=== PATIENT | male | born 1970 | race Caucasian/White ===

== ENCOUNTER 2021-05-26 16:33 | Inpatient (IN) | payer MEDICAID, SELFPAY ==
[2021-05-26] VITALS (29 sets, daily range): BP systolic 109–138; BP diastolic 59–91; PULSE 100–120; RESP 12–22; TEMP 37.1–37.2; O2SAT 94–100; BMI 24.6
--- NOTE | ~2021-05-26 | CT_ITS ---
EXAMINATION: CT abdomen pelvis w con EXAM DATE: 05/26/2021 17:26 INDICATION: Low abdominal pain. TECHNIQUE: Spiral CT of the abdomen and pelvis was performed following intravenous injection of 100 m L Omnipaque 350. Axial, coronal and sagittal images of the abdomen and pelvis were reviewed. The do se-length product (DLP) for this examination was 407.94 mGy-cm. The exposure was tailored according to patient size (auto mA exposure control), and iterative reconstruction (ASIR) was used as additiona l dose reduction technique. There is no prior study for comparison. FINDINGS: The liver, spleen, adrenal glands and pancreas are unremarkable. Gallbladder is unremarkab le. No biliary obstruction. Portal and splenic veins are patent. Kidneys enhance symmetrically. T here is no hydronephrosis. The prostate is unremarkable. Mild pericystic inflammation and diffuse bladder wall thickening, acute or chronic cystitis. There is no retroperitoneal or pelvic lymphadeno zoe. Mild to moderate arteriosclerotic disease. There is mild sigmoid diverticulosis. There is moderate amount of perisigmoid inflammation with sever al small foci of extraluminal gas in the mesentery, probably diverticulitis with microperforation. Po cket of mesenteric fluid without well-defined enhancing wall, region measuring 3.3 x 1.3 cm. Can't ex clude that this will turn into a small organized abscess. There is moderate amount of ileal wall thickening as well, ileitis. The small bowel proximal to the s egment is moderately distended with air and fluid, probably ileus. Appendix has fluid, but is otherwi se unremarkable. Colon also has fluid, correlate for diarrhea. The stomach and small bowel are unrem arkable. The heart is normal in size. There are no pericardial or pleural effusions. The lung base s are unremarkable. There are no osteoblastic or osteolytic lesions identified. IMPRESSION: 1. Acute sigmoid diverticulitis with microperforation. Colonic fluid, diarrhea. 2. Several loops of ileal wall inflammation, with moderately distended small bowel proximal to this. Consider gastroenteritis, reactive ileus. 3. Mild bladder wall inflammation, acute or chronic cystitis. 4. Recommend antibiotics, consider follow-up KUB/CT as indicated clinically. Reviewed, dictated and finalized at location G. IMPRESSION: 1. Acute sigmoid diverticulitis with microperforation. Colonic fluid, diarrhea . 2. Several loops of ileal wall inflammation, with moderately distended small b owel proximal to this. Consider gastroenteritis, reactive ileus. 3. Mild bladder wall inflammation, acute or chronic cystitis. 4. Recommend antibiotics, consider follow-up KUB/CT as indicated clinically.
[2021-05-26 17:03] LABS: Basophils Percent Auto 0.3 % (0.2-1.2); Eosinophils Percent Auto 0.1 % (0-4.4); Hematocrit 49.6 % (42.0-52.0); Hemoglobin 15.8 g/dL (14.0-18.0); Immature Granulocyte Absolute 0.08 K/mm3 (0.00-0.031); Immature Granulocyte Percent A 0.6 % (0-0.5); Lymphocytes Absolute Auto 0.76 K/mm3 (0.9-3.2); Lymphocytes Percent Auto 5.7 % (18.3-44.2); Mean Corpuscular HGB Conc 31.9 g/dl (32-36); Mean Corpuscular Hemoglobin 30.2 pg (26-34); Mean Corpuscular Volume 94.7 fl (80-100); Mean Platelet Volume 9.2 fl (7.4-10.4); Monocytes Absolute Auto 0.5 K/mm3 (0.1-0.6); Monocytes Percent Auto 3.6 % (2.6-8.5); Neutrophils Absolute Auto 11.9 K/mm3 (1.3-6.7); Neutrophils Percent Auto 89.7 % (45.5-73.1); Platelet Count Result 161 k/mm3 (150-375); Red Blood Count 5.24 M/mm3 (4.6-6.20); Red Cell Distribution Width 13.1 % (11.5-14.5); White Blood Count 13.2 K/mm3 (4.5-10.0)
[2021-05-26 17:09] LABS: Alanine Aminotransferase 19 U/L (4-50); Albumin Level 5.1 g/dL (3.5-5.1); Alkaline Phosphatase 56 U/L (38-126); Anion Gap 13 mmol/L (8-16); Aspartate Amino Transferase 27 U/L (17-59); Bilirubin,Total 2.5 mg/dL (0.2-1.3); Blood Urea Nitrogen 15 mg/dL (9-20); Calcium 9.9 mg/dL (8.4-10.2); Carbon Dioxide 23 mmol/L (22-30); Chloride 100 mmol/L (98-107); Estimated CRCL calculation 65 ml/min; Estimated Glomerular Filt Rate 54; Glucose 148 mg/dL (75-110); Lipase 36 U/L (23-300); Potassium 4.3 mmol/L (3.4-5.0); Sodium 136 mmol/L (137-145)
[2021-05-26] MEDS: SODIUM CHLORIDE 0.9% IV 1,000 ML 999 ML IV CONT (17:28)
[2021-05-26] MEDS: MORPHINE SULFATE (*CRX) 2 MG/ML INJ IV PUSH (17:29)
--- NOTE | 2021-05-26 17:39 | ED.ABDPAIN ---
HPI - Abdominal Pain General Chief Complaint: Abdominal Pain Stated Complaint: abd pain Time Seen by Provider: 05/26/21 16:44 Source: patient History of Present Illness HPI narrative: Patient is a 50 y/o male complaining bilateral lower abdominal pain since 4 days ago. He describes his pain as sharp and rates it as 7/10. He states that moving around aggravates his pain and laying still helps. There is no pain radiation. He also has some difficulty with urinating and watery stool. Related Data Allergies Allergy/AdvReac Type Severity Reaction Status Date / Time No Known Allergies Allergy Verified 06/12/18 10:32 Review of Systems Constitutional: Constitutional: Denies chills, Denies fever(s), Denies headache(s) and Denies weakness Eyes: Eyes: Denies blurry vision ENT: Denies headache(s) and Denies neck pain Cardiovascular: Cardiovascular: Denies chest pain and Denies dyspnea Respiratory: Respiratory: Denies cough and Denies dyspnea Gastrointestinal: Gastrointestinal: Reports abdominal pain, Reports diarrhea, Denies nausea and Denies vomiting Genitourinary: Genitourinary: Denies hematuria and Denies dysuria Musculoskeletal: Musculoskeletal: Denies back pain and Denies neck pain Neurologic: Denies headache(s) and Denies weakness Exam Const: General: no acute distress and well developed Orientation/consciousness: oriented to person, oriented to place, oriented to time and patient oriented x3 HENMT: Head: normocephalic Ears: external ears normal General nose exam: Normal external nose present Eyes: General: appearance normal, both eyes and all related structures Conjunctivae: conjunctivae normal Neck: Neck: normal visual inspection and full ROM Chest: Chest palpation & inspection: normal inspection of the chest and no tenderness Resp: Effort & Inspection: normal respiratory effort Auscultation: clear to auscultation bilaterally Cardio: Rate: tachycardic Rhythm: regular rhythm GI: GI Palp: Yes abdominal tenderness (bilateral lower abdomen) and Yes Soft to palpation Skin: General skin exam: normal color and turgor normal Neuro: General: oriented to person, oriented to place, oriented to time and patient oriented x3 Cognition (Neuro): normal cognition Extrem: General: normal to inspection, full ROM and no pedal edema Psych: Appearance: grossly normal Mental Status: mental status grossly normal Affect: normal affect Course Consultations Consultation #1: Discussed with Dr. Campbell, who agrees to admit and also recommends surgery consult. Date: 05/26/21 Time: 19:44 Consultation #2: Discussed with Dr. Kruger, who agrees to consult. Date: 05/26/21 Vital Signs Vital signs: Vital Signs Pulse Rate 115 H 05/26/21 16:49 Respiratory Rate 18 05/26/21 16:49 Blood Pressure 125/83 05/26/21 16:49 Temperature 37.2 C 05/26/21 20:19 Pulse Rate 112 H 05/26/21 20:19 Respiratory Rate 20 05/26/21 20:19 Blood Pressure 126/80 05/26/21 20:19 Pulse Oximetry 100 05/26/21 20:19 MDM - Abdominal Pain Lab Data Result diagrams: 05/26/21 16:52 05/26/21 16:52 Labs: Lab Results 05/26/21 05/26/21 05/26/21 Range/Units 16:52 16:52 18:21 WBC 13.2 H (4.5-10.0) K/mm3 RBC 5.24 (4.6-6.20) M/mm3 Hgb 15.8 (14.0-18.0) g/dL Hct 49.6 (42.0-52.0) % MCV 94.7 (80-100) fl MCH 30.2 (26-34) pg MCHC 31.9 L (32-36) g/dl RDW 13.1 (11.5-14.5) % Plt Count 161 (150-375) k/mm3 MPV 9.2 (7.4-10.4) fl Immature Gran % (Auto) 0.6 H (0-0.5) % Neut % (Auto) 89.7 H (45.5-73.1) % Lymph % (Auto) 5.7 L (18.3-44.2) % Swain % (Auto) 3.6 (2.6-8.5) % Eos % (Auto) 0.1 (0-4.4) % Baso % (Auto) 0.3 (0.2-1.2) % Lymph # (Auto) 0.76 L (0.9-3.2) K/mm3 Swain # (Auto) 0.5 (0.1-0.6) K/mm3 Eos # (Auto) 0.0 (0-0.3) K/mm3 Baso # (Auto) 0.0 (0.0-0.1) K/mm3 Abs Immat Gran (auto) 0.08 H (0.00-0.031) K/mm3 Abs
[2021-05-26 18:33] LABS: Add Urine Microscopic? YES; Appearance Urine Clear (Clear); Bilirubin Urine Negative (Negative); Blood Urine Negative (Negative); Color Urine Yellow (Yellow); Glucose Urine UA Negative (Negative); Ketones Urine Trace mg/dL (Negative); Leukocyte Esterase Ur Negative LEU/UL (Negative); Mucus Urine Heavy /lpf; Nitrate Urine Negative (Negative); Protein Urine 2+ mg/dL (Negative); Squamous Epithelial Cell Urine Rare /hpf (Few); Urobilinogen Urine Negative mg/dL (<2.0)
[2021-05-26] MEDS: metroNIDAZOLE 500 MG/ISO 100ML 500 MG/100 ML BAG 100 MG IVPB (19:01)
--- NOTE | 2021-05-26 19:51 | PM.IMHP ---
H&P: HPI History of Present Illness Date/Time: 05/26/21 19:51 Chief Complaint: abdominal pain Narrative: Patient is a 50 y/o male complaining abdominal pain since Thursday. Abdominal pain is located in the lower abdomen. He felt he was constipated on Thursday and was not able to go. He describes the pain as sharp and 7 x 10 in intensity, aggravated with moving around, alleviated by lying still. No radiation of the pain. He denies any urinary symptoms. Since Thursday he has been having watery stool. No blood in the stool. There is no nausea or vomiting. He came in for the evaluation the ED use onto her my EKG I have creatinine 1.4 leukocytosis with WBC count of 13.2 CT scan of the abdomen and pelvis was done which showed acute sigmoid diverticulitis with microperforations along with several loops of ideal wall inflammation with moderate distended small bowel proximal to this. There is also mild lateral wall inflammation and acute diastolic cystitis His admitted for further evaluation and management Review of Systems Review of Systems: Narrative: - CONSTITUTIONAL: Denies weight loss, fever and chills. - HEENT: Denies changes in vision and hearing - RESPIRATORY: Denies SOB and cough. - CV: Denies palpitations and CP. - GI: reportsabdominal pain, and diarrhea, denies nausea, vomiting - : Denies dysuria and urinary frequency. - MSK: Denies myalgia and joint pain. - SKIN: Denies rash and pruritus. - NEUROLOGICAL: Denies headache and syncope. - PSYCHIATRIC: Denies recent changes in mood. Denies anxiety and depression. All systems reviewed & are unremarkable except as noted in HPI and below Neurologic: Reports weakness Endocrine: Endocrine: Reports fatigue [facility] Social History Social History Smoking packs per day: 1 Smoking cigarettes per day: 20.0 Smoking status: Former smoker Alcohol intake: never Substance use: never Gender identity (if verbalized by the patient): Male Spiritual care concerns: No Meds Home Medications and Allergies Home Medications Medication Instructions Recorded Confirmed Type No Home Medications 05/26/21 05/26/21 History Allergies Allergy/AdvReac Type Severity Reaction Status Date / Time No Known Allergies Allergy Verified 06/12/18 10:32 Vital Signs Vital Signs - 24 hr 05/26/21 16:49 05/26/21 16:50 05/26/21 16:56 Temperature 98.9 F Pulse Rate 115 H 120 H 115 H Respiratory Rate 18 18 20 Blood Pressure 125/83 125/83 Pulse Oximetry 96 98 05/26/21 17:00 05/26/21 17:01 05/26/21 17:15 Temperature Pulse Rate 108 H 118 H 111 H Respiratory Rate 15 21 H 14 Blood Pressure 119/83 131/91 H Pulse Oximetry 94 95 96 05/26/21 17:27 05/26/21 17:28 05/26/21 17:30 Temperature Pulse Rate 108 H 110 H 108 H Respiratory Rate 15 20 13 Blood Pressure 137/82 133/82 Pulse Oximetry 95 96 97 05/26/21 17:31 05/26/21 17:45 05/26/21 17:46 Temperature Pulse Rate 111 H 105 H 111 H Respiratory Rate 12 15 20 Blood Pressure 138/85 Pulse Oximetry 96 96 96 05/26/21 18:00 05/26/21 18:01 05/26/21 18:15 Temperature Pulse Rate 102 H 104 H 116 H Respiratory Rate 16 20 17 Blood Pressure 136/87 Pulse Oximetry 96 97 97 05/26/21 18:22 05/26/21 18:30 05/26/21 18:31 Temperature Pulse Rate 105 H 103 H 102 H Respiratory Rate 19 19 22 H Blood Pressure 137/87 135/82 Pulse Oximetry 97 96 96 05/26/21 18:45 05/26/21 18:46 05/26/21 19:00 Temperature Pulse Rate 100 102 H 103 H Respiratory Rate 20 15 17 Blood Pressure 131/81 137/83 Pulse Oximetry 98 97 96 05/26/21 19:01 Temperature Pulse Rate 110 H Respiratory Rate 13 Blood Pressure Pulse Oximetry 96 Exam Narrative: Exam Narrative: GENERAL: The patient is well developed, not in acute distress HEENT: Nonicteric sclerae, PERRLA, EOMI. Oropharynx clear. Moist mucous membranes. Conjunctivae appear well perfused. C
[2021-05-26] MEDS: CIPROFLOXACIN 400 MG/D5W 200ML 200 ML 200 MG IVPB (20:09)
[2021-05-26] MEDS: SODIUM CHLORIDE 0.9% IV 1,000 ML 125 ML IV CONT (20:29)
--- NOTE | 2021-05-26 20:41 | PC.NURSE ---
This patient, Giovani Diaz, was admitted to Medical Room 349-01. Patient/family oriented to hospital policies and general routines including ID bracelet, bed and alarms, visiting hours, pain management, procedures, bathroom and other care routines, personal items, smoking policy, room service/diet, and visiting hours. Information on how to activate the Rapid Response Team has been discussed. Patient/Family are encouraged to report perceived risks to care and to ask questions if they do not understand what they are told or what they should do.
[2021-05-27 04:23] VITALS: BP 117/68; PULSE 101; RESP 18; TEMP 36.9; O2SAT 96
[2021-05-27] MEDS: SODIUM CHLORIDE 0.9% IV 1,000 ML 125 ML IV CONT ×2 (05:23→16:03)
[2021-05-27] MEDS: metroNIDAZOLE 500 MG/ISO 100ML 500 MG/100 ML BAG 100 MG IVPB ×3 (05:23→22:02)
[2021-05-27 05:33] LABS: Basophils Percent Auto 0.3 % (0.2-1.2); Eosinophils Percent Auto 0.1 % (0-4.4); Hemoglobin 13.9 g/dL (14.0-18.0); Immature Granulocyte Absolute 0.06 K/mm3 (0.00-0.031); Immature Granulocyte Percent A 0.5 % (0-0.5); Immature Platelet Fraction Pct 2.4 % (0.9-11.2); Lymphocytes Absolute Auto 0.77 K/mm3 (0.9-3.2); Lymphocytes Percent Auto 6.7 % (18.3-44.2); Mean Corpuscular HGB Conc 31.6 g/dl (32-36); Mean Platelet Volume 9.2 fl (7.4-10.4); Monocytes Absolute Auto 0.5 K/mm3 (0.1-0.6); Neutrophils Absolute Auto 10.1 K/mm3 (1.3-6.7); Neutrophils Percent Auto 88.4 % (45.5-73.1); Platelet Count Result 165 k/mm3 (150-375); Red Blood Count 4.63 M/mm3 (4.6-6.20); Red Cell Distribution Width 13.2 % (11.5-14.5); White Blood Count 11.5 K/mm3 (4.5-10.0)
[2021-05-27 05:46] LABS: Anion Gap 12 mmol/L (8-16); Blood Urea Nitrogen 16 mg/dL (9-20); Calcium 9.2 mg/dL (8.4-10.2); Carbon Dioxide 21 mmol/L (22-30); Chloride 101 mmol/L (98-107); Estimated CRCL calculation 67 ml/min; Estimated Glomerular Filt Rate 54; Glucose 142 mg/dL (75-110); Potassium 4.1 mmol/L (3.4-5.0); Sodium 134 mmol/L (137-145)
[2021-05-27] MEDS: ENOXAPARIN 40 MG/0.4 ML SYRINGE SUB-Q (08:58)
[2021-05-27] MEDS: CIPROFLOXACIN 400 MG/D5W 200ML 200 ML 200 MG IVPB (08:59)
--- NOTE | 2021-05-27 09:17 | PM.CNGS ---
Assessment and Plan Assessment and plan (1) Perforation of sigmoid colon due to diverticulitis: Onset Date: ~05/26/21 Code(s): K57.20 - Diverticulitis of large intestine with perforation and abscess without bleeding Status: Acute Assessment and Plan: It appears that the micro perforation is into the mesentery. Patient may have a pericolonic developing abscess 3 x 3 x 1 cm in size. Probably will be too small to drain. Probably will need a repeat CT scan at some point after trying a course of antibiotics. (2) Ileus: Onset Date: ~05/26/21 Code(s): K56.7 - Ileus, unspecified Status: Acute Assessment and Plan: This appears to have resolved as the patient is not nauseated and having loose stools. (3) Acute kidney injury: Onset Date: ~05/2021 Code(s): N17.9 - Acute kidney failure, unspecified Status: Acute Assessment and Plan: Slight elevation of BUN creatinine and patient may be somewhat dehydrated. Will see if this improves with hydration. (4) Cystitis: Onset Date: ~05/26/21 Code(s): N30.90 - Cystitis, unspecified without hematuria Status: Acute Assessment and Plan: This is record in view of the findings of the CT scan. Urinalysis is not too remarkable will await urine culture. Patient will be on antibiotics anyway for his diverticulitis using Levaquin and Flagyl which should treat most any urinary tract infection. History of Present Illness Consult details Consult date: 05/27/21 Reason for consult: abdominal pain Requesting physician: Darrell Campbell MD Narrative: Patient is a 50 y/o tall White male who presented to the [facility] emergency room complaining abdominal pain since Thursday. he states that his abdominal pain is located in the lower abdomen. He felt he was constipated on Thursday and was not able to have a BM. He describes the pain as sharp and 7/ 10 in intensity, aggravated with moving around, alleviated by lying still. No radiation of the pain. He denies any urinary symptoms. Since Thursday he has been having watery stools. No blood in the stool. There is no nausea or vomiting. He came in for the evaluation to the ED and was noted to have a leukocytosis with WBC count of 13.2. A CT scan of the abdomen and pelvis was done which showed acute sigmoid diverticulitis with microperforations in the mesentery along with several loops of ideal wall inflammation with moderate distended small bowel proximal to this. There is also mild lateral wall inflammation and signs of a thickened urinary bladder wall consistent with acute cystitis. However his urinalysis does not look too bad. Review of Systems Constitutional: Constitutional: Reports no additional constitutional complaints and Denies frequent falls Eyes: Eyes: Reports as per HPI ENT: Reports Normal hearing present, Denies dizziness and Reports other (Mucous membranes moist.) Cardiovascular: Cardiovascular: Denies chest pain, Denies palpitations, Denies dyspnea and Denies dyspnea on exertion Respiratory: Respiratory: Denies hemoptysis, Denies dyspnea, Denies dyspnea on exertion and Denies wheezing Gastrointestinal: Gastrointestinal: Reports no additional gastrointestinal complaints Genitourinary: Genitourinary: Denies hematuria, Denies nocturia and Denies urinary frequency Musculoskeletal: Musculoskeletal: Denies deformity and Reports other ( no clubbing,cyanosis, or edema) Integumentary/Breasts: Skin/Breast: Denies new lesions, Denies rash and Denies unusual bruising Neurologic: Reports Normal hearing present, Denies dizziness, Denies frequent falls, Denies memory loss and Denies seizure-like activity Psychiatric: Psychiatric: Denies memory loss and Reports other ( normal mood and mental status) Endocrine: Endocrine: Denies cold intolerance and Denies palpitations Hematologic/Lymphatic: Hematologic/Lymphatic: Denies easy bleeding and Denies easy bruis
[2021-05-27 14:00] VITALS: BP 118/71; PULSE 102; RESP 20; TEMP 36.4; O2SAT 98
--- NOTE | 2021-05-27 15:51 | PM.IMPN ---
Progress Note: A&P Assessment and Plan (1) Perforation of sigmoid colon due to diverticulitis: Onset Date: ~05/26/21 Code(s): K57.20 - Diverticulitis of large intestine with perforation and abscess without bleeding Status: Acute Assessment and Plan: CT showed gas and micro perforation that may be into the mesentery. per surgery - may have a pericolonic developing abscess 3 x 3 x 1 cm in size. Probably will be too small to drain. Probably will need a repeat CT scan at some point after trying a course of antibiotics. Continue IV fluids clear liquid diet - and generalized bowel rest continue IV Cipro and IV Flagyl (2) Ileus: Onset Date: ~05/26/21 Code(s): K56.7 - Ileus, unspecified Status: Acute Assessment and Plan: 3 bowel movements yesterday, 5 bowel movements today appears to have resolved patient is not nauseated and having loose stools. appreciate general surgery consultation and recommendations at discharge may need to be treated with daily fiber as patient states he does have a chronic history of constipation (3) Acute kidney injury: Onset Date: ~05/2021 Code(s): N17.9 - Acute kidney failure, unspecified Status: Acute Assessment and Plan: continue IV fluids at 125 mils per hour clear liquid diet creatinine 1.4, rechecking labs in the morning Slight elevation of BUN creatinine and patient may be somewhat dehydrated. Will see if this improves with hydration. (4) Cystitis: Onset Date: ~05/26/21 Code(s): N30.90 - Cystitis, unspecified without hematuria Status: Acute Assessment and Plan: shown in the findings of the CT scan at this admission. Urinalysis is not too remarkable , UA clear,will await urine culture. informed patient - bladder inflammation may be related to diverticulitis episode Patient will be on antibiotics anyway for his diverticulitis using Levaquin and Flagyl which should treat most any urinary tract infection. encourage patient to follow-up with primary care provider (5) Diverticulitis large intestine: Qualifiers: Diverticulitis bleeding: without bleeding Diverticulitis complication: with perforation and abscess Qualified Code(s): K57.20 - Diverticulitis of large intestine with perforation and abscess without bleeding Code(s): K57.32 - Diverticulitis of large intestine without perforation or abscess without bleeding Status: Acute Assessment and Plan: see above plan for perforation of sigmoid colon due to diverticulitis encouraged patient to continue his probiotics at home after discharge treat patient's constipation at discharge with daily fiber patient will need to follow-up with general surgery after discharge for colonoscopy (6) Sepsis: Qualifiers: Sepsis acute organ dysfunction status: unspecified Sepsis type: sepsis due to unspecified organism Qualified Code(s): A41.9 - Sepsis, unspecified organism Code(s): A41.9 - Sepsis, unspecified organism Status: Acute Assessment and Plan: tachycardia admission, slightly improved with IV fluids continue IV hydration IV antibiotics Cipro and Flagyl lactate 2.0 white count improved from 13.2 to 11.5 no fevers noted today no nausea or vomiting today Additional Plan DVT prophylaxis Lovenox Subjective Date/time seen: 05/27/21 15:51 Giovani is feeling better than he did admission. His CT did show a micro perforation with gas. He feels like he had about 3 bowel movements yesterday, and was up to 5 bowel movements when I went to see him at noon today. But he feels improved because he is no longer having abdominal pain except during exam with deep palpation to the left lower and upper quadrants. Dr. Kruger allowed the patient to start clear liquid diet for lunch. But during my exam and noticed he only took in 25-50%. Will continue IV fluids at 125 mL an hour. Contin
[2021-05-27 20:00] VITALS: PULSE 90; RESP 18; O2SAT 95
[2021-05-27 20:04] VITALS: BP 107/59; PULSE 90; RESP 18; TEMP 37.2; O2SAT 95
[2021-05-27] MEDS: CIPROFLOXACIN 400 MG/D5W 200ML 200 ML 150 MG IVPB (20:36)
[2021-05-28] MEDS: SODIUM CHLORIDE 0.9% IV 1,000 ML 125 ML IV CONT ×2 (02:30→13:38)
[2021-05-28 04:11] VITALS: BP 122/78; PULSE 82; RESP 20; TEMP 36.7; O2SAT 94
[2021-05-28] MEDS: metroNIDAZOLE 500 MG/ISO 100ML 500 MG/100 ML BAG 100 MG IVPB ×3 (05:37→21:29)
[2021-05-28 05:43] LABS: Basophils Percent Auto 0.2 % (0.2-1.2); Eosinophils Absolute Auto 0.1 K/mm3 (0-0.3); Eosinophils Percent Auto 1.3 % (0-4.4); Hematocrit 37.6 % (42.0-52.0); Hemoglobin 12.1 g/dL (14.0-18.0); Immature Granulocyte Absolute 0.06 K/mm3 (0.00-0.031); Immature Granulocyte Percent A 0.6 % (0-0.5); Lymphocytes Absolute Auto 0.82 K/mm3 (0.9-3.2); Lymphocytes Percent Auto 7.8 % (18.3-44.2); Mean Corpuscular HGB Conc 32.2 g/dl (32-36); Mean Corpuscular Hemoglobin 30.1 pg (26-34); Mean Corpuscular Volume 93.5 fl (80-100); Mean Platelet Volume 9.3 fl (7.4-10.4); Monocytes Absolute Auto 0.7 K/mm3 (0.1-0.6); Monocytes Percent Auto 6.8 % (2.6-8.5); Neutrophils Absolute Auto 8.8 K/mm3 (1.3-6.7); Neutrophils Percent Auto 83.3 % (45.5-73.1); Platelet Count Result 135 k/mm3 (150-375); Red Blood Count 4.02 M/mm3 (4.6-6.20); White Blood Count 10.6 K/mm3 (4.5-10.0)
[2021-05-28 05:50] LABS: Anion Gap 8 mmol/L (8-16); Blood Urea Nitrogen 14 mg/dL (9-20); Calcium 8.3 mg/dL (8.4-10.2); Carbon Dioxide 23 mmol/L (22-30); Chloride 103 mmol/L (98-107); Estimated CRCL calculation 72 ml/min; Estimated Glomerular Filt Rate 59; Glucose 123 mg/dL (75-110); Magnesium 1.7 mg/dL (1.6-2.3); Sodium 134 mmol/L (137-145)
--- NOTE | 2021-05-28 07:55 | PM.PNGS ---
Progress Note: A&P Assessment and Plan (1) Perforation of sigmoid colon due to diverticulitis: Onset Date: ~05/26/21 Code(s): K57.20 - Diverticulitis of large intestine with perforation and abscess without bleeding Status: Acute Assessment and Plan: Patient still seems to be having somewhat of a ileus. Will continue IV antibiotics stick with clear liquids until he feels ready to try full liquids. He is having multiple loose stool so whenever he feels like he can try a we will advance him to full liquids. (2) Ileus: Onset Date: ~05/26/21 Code(s): K56.7 - Ileus, unspecified Status: Acute Assessment and Plan: as above (3) Acute kidney injury: Onset Date: ~05/2021 Code(s): N17.9 - Acute kidney failure, unspecified Status: Acute Assessment and Plan: improved on today's labs. (4) Cystitis: Onset Date: ~05/26/21 Code(s): N30.90 - Cystitis, unspecified without hematuria Status: Acute Assessment and Plan: This was noted on CT scan. Patient really having no specific symptoms of problems with the bladder that I can tell. Additional Plan Will continue IV antibiotics and IV fluids until patient able to advance his diet. May be able to be discharged tomorrow on oral antibiotics for another 7-10 days if doing well. White count the same today. Subjective Subjective Date/Time Seen: 05/28/21 07:55 Patient reports: tolerating liquids well Interval history: Patient states that overnight after trying liquids he felt slightly bloated and also slightly dizzy. He wants stick with clear liquids this morning. No increased abdominal pain. He was able do some walking early this morning in the hallway. Still had about 3 or 4 loose stools overnight. Review of Systems Constitutional: Constitutional: Reports no additional constitutional complaints ENT: Reports other (Mucous Membranes moist.) Cardiovascular: Cardiovascular: Denies dyspnea Respiratory: Respiratory: Denies pain on inspiration and Denies dyspnea Gastrointestinal: Comments: Patient complains of continuing loose stools and feeling slightly dizzy when up and about after drinking clear liquids yesterday. Genitourinary: Genitourinary: Reports no additional male genitourinary complaints Musculoskeletal: Musculoskeletal: Reports other (No calf swelling or edema) Integumentary/Breasts: Skin/Breast: Reports system reviewed and no additional complaints, except as docu Exam Const: General: cooperative, no acute distress, alert and awake Orientation/consciousness: patient oriented x3 HENMT: Mouth: Yes moist mucous membranes Neck: Neck: normal visual inspection Chest: Chest palpation & inspection: normal inspection of the chest Resp: Effort & Inspection: normal respiratory effort Auscultation: clear to auscultation bilaterally Cardio: Jugular venous distension: no JVD Rate: regular rate Rhythm: regular rhythm GI: GI Palp: Yes abdominal tenderness ( Mild in the left lower quadrant and right lower quadrant), Yes Soft to palpation, No Guarding due to palpation present (GI) and No Rigid due to palpation Auscultation: Hypoactive bowel sounds present Rectal Exam: deferred : Male General Exam: Yes normal external exam Neuro: General: patient oriented x3 and moves all extremities Speech: normal speech Extrem: General: normal exam except as noted Psych: Mental Status: mental status grossly normal Speech and movement: Normal speech and movement present Affect: normal affect Thought content: Yes Normal thought content present Objective Data Vital Signs Vital Signs: Vital Signs - 24 hr 05/27/21 14:00 05/27/21 20:00 05/27/21 20:04 Temperature 36.4 C L 37.2 C Pulse Rate 102 H 90 90 Respiratory Rate 20 18 18 Blood Pressure 118/71 107/59 L Pulse Oximetry 98 95 95 05/28/21 04:11 Temperature 36.7 C Pulse Rate 82 Respiratory Rate 20 Blood Pressure 122/78
[2021-05-28] MEDS: CIPROFLOXACIN 400 MG/D5W 200ML 200 ML 100 MG IVPB (08:24)
[2021-05-28] MEDS: ENOXAPARIN 40 MG/0.4 ML SYRINGE SUB-Q (08:27)
[2021-05-28] MEDS: MAGNESIUM SULF 2 GM/WATER 50ML 2 GM/50 ML BAG IVPB (10:49)
--- NOTE | 2021-05-28 11:49 | PCNSR ---
On 05/28/21, the student,Faith Shirley, provided care and completed [facility] documentation on this patient. I have reviewed the student's documentation and agree with the findings.
[2021-05-28 14:00] VITALS: BP 116/68; PULSE 91; RESP 16; TEMP 36.3; O2SAT 95
[2021-05-28 14:28] VITALS: O2SAT 95
--- NOTE | 2021-05-28 14:53 | PM.IMPN ---
Progress Note: A&P Assessment and Plan (1) Perforation of sigmoid colon due to diverticulitis: Onset Date: ~05/26/21 Code(s): K57.20 - Diverticulitis of large intestine with perforation and abscess without bleeding Status: Acute Assessment and Plan: CT showed acute sigmoid diverticulitis with microperforation in pocket of mesenteric fluid without well-defined enhancing wall, may be early abscess formation (Too small to drain per general surgery) Appreciate general surgery consultation Continue IV Cipro and Flagyl Clear liquid diet. Advance as tolerated. Continue IV fluids until tolerating diet better. Plan for repeat CT scan following antibiotic course to monitor perforation/abscess. Will also need outpatient follow up for colonoscopy. (2) Ileus: Onset Date: ~05/26/21 Code(s): K56.7 - Ileus, unspecified Status: Acute Assessment and Plan: Resolved. Noted on CT with several loops of ileal wall inflammation. He has been having multiple, loose stools and tolerating CLD without N/V. advance diet as tolerated plan as above (3) Acute kidney injury: Onset Date: ~05/2021 Code(s): N17.9 - Acute kidney failure, unspecified Status: Acute Assessment and Plan: Creatinine elevated at 1.4 upon arrival with improvement today down to 1.3. GFR is 59 today. Continue gentle IV fluid rehydration Monitor renal function closely and renally dose medications (4) Sepsis: Qualifiers: Sepsis acute organ dysfunction status: unspecified Sepsis type: sepsis due to unspecified organism Qualified Code(s): A41.9 - Sepsis, unspecified organism Code(s): A41.9 - Sepsis, unspecified organism Status: Acute Assessment and Plan: Present on admission with tachycardia and leukocytosis. He remains afebrile. Leukocytosis and tachycardia improving. Lactic is 2.0. Continue treatment plan as above (5) Abnormal finding on CT scan: Code(s): R93.89 - Abnormal findings on diagnostic imaging of other specified body structures Status: Acute Assessment and Plan: CT showed mild bladder wall inflammation, concerning for cystitis. He denies urinary symptoms and UA without concerns for infection. Additional Plan Mag 1.7 today. Will administer 2 g IV magnesium sulfate. Subjective Date/time seen: 05/28/21 14:53 Interval history: date of service: 05/28/2021 Giovani Diaz is a healthy 50-year-old male no significant past medical history who is seen in follow-up for diverticulitis with microperforation. He is feeling better today and his pain is improved. He still endorses lower abdominal pain in the right and left quadrants that he currently rates as 7/10. He also complains of feeling bloated and this worsens if he eats anything. He has had no appetite at all. He notices his pain is slightly worse when eating, so he did not eat breakfast this morning and has only had a few sips of lunch. He has been having brown, liquidy stools and estimates 5 episodes today. Denies melena or hematochezia. He is able to ambulate to the restroom without difficulty. Denies dizziness or lightheadedness. No shortness breath, cough, or chest pain. No headaches or body aches. No fevers or chills. Review of Systems Review of Systems: All systems reviewed & are unremarkable except as noted in HPI and below Exam Narrative: Exam Narrative: Mr. Diaz is a well-nourished, well-appearing 50-year-old male who is lying supine in bed. He appears comfortable and is in NARD. Neuro: awake, alert and oriented x4, speech clear, no focal neuro deficits noted HEENMT: normocephalic, atraumatic, EOMI, sclerae anicteric, moist oral mucosa Neck: supple, no lymphadenopathy Respiratory: clear to auscultation bilaterally, nonlabored breathing Cardio: regular rate, regular rhythm with S1-S2 Abdomen: slightly distended, normoactive bowel sounds, soft, min
--- NOTE | 2021-05-28 16:26 | PC.NURSE ---
Patient is still wanting to stick to the clear liquid diet. Has not had much of an appetite and feels bloated after eating and has had six loose stools.
[2021-05-28] MEDS: SODIUM CHLORIDE 0.9% IV 1,000 ML 85 ML IV CONT (16:29)
[2021-05-28] MEDS: CIPROFLOXACIN 400 MG/D5W 200ML 200 ML 200 MG IVPB (20:05)
[2021-05-28 20:16] VITALS: O2SAT 98
[2021-05-28 21:26] VITALS: BP 128/82; PULSE 92; RESP 20; TEMP 36.6; O2SAT 98
[2021-05-29] MEDS: SODIUM CHLORIDE 0.9% IV 1,000 ML 85 ML IV CONT (04:25)
[2021-05-29] MEDS: ACETAMINOPHEN 500 MG TABLET 1000 MG PO (04:58)
[2021-05-29] MEDS: metroNIDAZOLE 500 MG/ISO 100ML 500 MG/100 ML BAG 100 MG IVPB ×2 (05:31→13:28)
[2021-05-29 06:00] VITALS: BP 115/68; PULSE 85; RESP 18; TEMP 36.2; O2SAT 97
[2021-05-29 06:22] LABS: Basophils Percent Auto 0.2 % (0.2-1.2); Eosinophils Absolute Auto 0.2 K/mm3 (0-0.3); Eosinophils Percent Auto 1.6 % (0-4.4); Hematocrit 38.4 % (42.0-52.0); Hemoglobin 12.1 g/dL (14.0-18.0); Immature Granulocyte Absolute 0.06 K/mm3 (0.00-0.031); Immature Granulocyte Percent A 0.5 % (0-0.5); Lymphocytes Absolute Auto 0.79 K/mm3 (0.9-3.2); Lymphocytes Percent Auto 6.7 % (18.3-44.2); Mean Corpuscular HGB Conc 31.5 g/dl (32-36); Mean Corpuscular Hemoglobin 29.8 pg (26-34); Mean Corpuscular Volume 94.6 fl (80-100); Mean Platelet Volume 9.3 fl (7.4-10.4); Monocytes Absolute Auto 0.9 K/mm3 (0.1-0.6); Monocytes Percent Auto 7.8 % (2.6-8.5); Neutrophils Absolute Auto 9.9 K/mm3 (1.3-6.7); Neutrophils Percent Auto 83.2 % (45.5-73.1); Platelet Count Result 169 k/mm3 (150-375); Red Blood Count 4.06 M/mm3 (4.6-6.20); Red Cell Distribution Width 13.2 % (11.5-14.5); White Blood Count 11.9 K/mm3 (4.5-10.0)
[2021-05-29 06:41] LABS: Anion Gap 10 mmol/L (8-16); Blood Urea Nitrogen 13 mg/dL (9-20); Calcium 8.6 mg/dL (8.4-10.2); Carbon Dioxide 23 mmol/L (22-30); Chloride 102 mmol/L (98-107); Estimated CRCL calculation 85 ml/min; Estimated Glomerular Filt Rate > 60; Glucose 126 mg/dL (75-110); Potassium 3.6 mmol/L (3.4-5.0); Sodium 135 mmol/L (137-145)
[2021-05-29] MEDS: CIPROFLOXACIN 400 MG/D5W 200ML 200 ML 200 MG IVPB (08:43)
[2021-05-29] MEDS: ENOXAPARIN 40 MG/0.4 ML SYRINGE SUB-Q (08:45)
--- NOTE | 2021-05-29 13:14 | PM.PNGS ---
Progress Note: A&P Assessment and Plan (1) Perforation of sigmoid colon due to diverticulitis: Onset Date: ~05/26/21 Code(s): K57.20 - Diverticulitis of large intestine with perforation and abscess without bleeding Status: Acute Assessment and Plan: Clinically improving. Bowels are moving and his bloating has improved. Able to tolerate full liquids today. Will advance to a low fiber diet. Continue this for 2 weeks. Director Of Provider Relations educated patient. Okay from a surgical standpoint to discharge the patient later today if tolerating a low fiber diet. Would recommend another 8 days of oral antibiotics, ciprofloxacin and metronidazole. We will plan to have him follow-up with Dr. Kruger in 1 week and set him up as an outpatient for a colonoscopy when seen in follow-up. (2) Ileus: Onset Date: ~05/26/21 Code(s): K56.7 - Ileus, unspecified Status: Acute Assessment and Plan: Resolved. (3) Acute kidney injury: Onset Date: ~05/2021 Code(s): N17.9 - Acute kidney failure, unspecified Status: Acute (4) Cystitis: Onset Date: ~05/26/21 Code(s): N30.90 - Cystitis, unspecified without hematuria Status: Acute Additional Plan I have discussed the patient's case and plan of care with Dr. Kruger. Subjective Subjective Date/Time Seen: 05/29/21 11:14 Patient reports: no new complaints, feels better, pain is less, flatus, bowel movement (x 3 today, loose, diarrhea improving) and afebrile Interval history: The patient was seen this morning lying in bed. He reports having full liquids for breakfast and doing well with that. No nausea or vomiting. He denies any abdominal pain this morning, states he is more just tender in the lower abd still. Reports his significant bloating has improved since yesterday. Still moving his bowels with 3 loose BMs this morning. Review of Systems Review of Systems: All systems reviewed & are unremarkable except as noted in HPI and below Exam Const: General: comfortable, no acute distress, alert and awake Orientation/consciousness: patient oriented x3 Resp: Effort & Inspection: normal respiratory effort Auscultation: clear to auscultation bilaterally Cardio: Rate: regular rate Rhythm: regular rhythm GI: Inspection: no visible herniation and other (mildly distended) GI Palp: Yes Soft to palpation, Yes Tenderness to palpation present (GI) (suprapubic), No Guarding due to palpation present (GI), Yes No hepatosplenomegaly present and No Rebound tenderness present Auscultation: normal bowel sounds Rectal Exam: deferred Skin: General skin exam: normal color Neuro: General: moves all extremities and no focal motor deficits Extrem: General: no clubbing, cyanosis or edema and no calf tenderness Psych: Mental Status: mental status grossly normal Insight: Good insight present (Psych) Judgement: Good judgement present (Psych) Objective Data Vital Signs Vital Signs: Vital Signs - 24 hr 05/28/21 14:00 05/28/21 14:28 05/28/21 20:16 Temperature 97.3 F L Pulse Rate 91 Respiratory Rate 16 Blood Pressure 116/68 Pulse Oximetry 95 95 98 05/28/21 21:26 05/29/21 06:00 Temperature 97.8 F 97.2 F L Pulse Rate 92 85 Respiratory Rate 20 18 Blood Pressure 128/82 115/68 Pulse Oximetry 98 97 Intake/Output Intake/Output: Intake & Output 05/26/21 05/27/21 05/28/21 05/29/21 23:59 23:59 23:59 23:59 Intake Total 1300 3410 4090 1640 Output Total 300 0 Balance 1300 3110 4090 1640 Meds/Results Medications: Active Medications Generic Name Dose Route Start Last Admin Trade Name Freq PRN Reason Stop Dose Admin Acetaminophen 1,000 mg 05/27/21 09:26 05/29/21 04:58 Acetaminophen 500 Mg Tablet PO 1,000 mg Q6H PRN Administration Mild Pain (1-3) or Fever Hydrocodone Bitart/Acetaminophen 1 tab 05/27/21 09:26 Hydrocodone/Acetaminophen (*Crx) 5-325 Mg Tablet PO Q6H PRN Pain Rated 4-6 Enoxaparin
[2021-05-29 14:00] VITALS: BP 120/75; PULSE 97; RESP 16; TEMP 36.8; O2SAT 98
--- NOTE | 2021-05-29 15:37 | PM.DS ---
DS: Admitting Diagnosis Admitting Diagnosis Admitting Diagnosis: Diverticulitis with microperforation DS: Discharge Diagnosis Discharge Diagnosis (1) Perforation of sigmoid colon due to diverticulitis: Onset Date: ~05/26/21 Code(s): K57.20 - Diverticulitis of large intestine with perforation and abscess without bleeding Status: Acute Assessment and Plan: CT showed acute sigmoid diverticulitis with microperforation in pocket of mesenteric fluid without well-defined enhancing wall, may be early abscess formation (Too small to drain per general surgery) Seen in consultation by general surgery Treated with IV Cipro and Flagyl. will continue course of p.o. Cipro and Flagyl as an outpatient for 8 days Probiotic prescribed with antibiotics Diet was slowly advanced. Able to tolerate low-fiber diet. Will continue with low-fiber diet as an outpatient until general surgery follow-up Tylenol as needed for pain control Follow-up with general surgery in 1 week. Colonoscopy will be arranged and likely will have repeat CT scan. (2) Ileus: Onset Date: ~05/26/21 Code(s): K56.7 - Ileus, unspecified Status: Acute Assessment and Plan: Resolved. Noted on CT with several loops of ileal wall inflammation. He had multiple, loose stools and was able to tolerate diet without nausea or vomiting (3) Acute kidney injury: Onset Date: ~05/2021 Code(s): N17.9 - Acute kidney failure, unspecified Status: Acute Assessment and Plan: Creatinine elevated at 1.4 upon arrival. suspect prerenal etiology secondary to dehydration, especially given multiple loose stools. he was rehydrated with IV fluids and renal function returned to baseline. (4) Sepsis: Qualifiers: Sepsis acute organ dysfunction status: unspecified Sepsis type: sepsis due to unspecified organism Qualified Code(s): A41.9 - Sepsis, unspecified organism Code(s): A41.9 - Sepsis, unspecified organism Status: Acute Assessment and Plan: Present on admission with tachycardia and leukocytosis. He remained afebrile. Leukocytosis improved and tachycardia resolved. Lactic 2.0. Source of infection felt to be diverticulitis with microperforation. See plan above for treatment. (5) Abnormal finding on CT scan: Code(s): R93.89 - Abnormal findings on diagnostic imaging of other specified body structures Status: Acute Assessment and Plan: CT showed mild bladder wall inflammation, concerning for cystitis. He did not have urinary symptoms and UA without concerns for infection. DS: Summary Hospital Course Hospital Course: date of admission: 05/26/2021 date of discharge: 05/29/2021 Giovani Diaz is a healthy 50-year-old male no significant past medical history who presented to the emergency department on 05/26/2021 with complaints of lower abdominal pain ongoing for 4 days that he described as 7/10 with associated loose stool. Upon presentation to the emergency department, he was tachycardic with additional vital signs stable, WBC was 13.2, H&H and platelets within normal limits, sodium 136 creatinine 1.4, additional electrolytes stable, lipase 36, UA without concerns for infection, and CT abdomen/ pelvis showed acute sigmoid diverticulitis with microperforation with colonic fluid, several loops of ileal wall inflammation, and mild bladder wall inflammation. he was admitted to the hospitalist service for further evaluation and management and seen in consultation by General surgery. Please see above for further details. He was treated with IV antibiotics and had symptomatic improvement. He began feeling better and was able to tolerate a low-fat diet. Given his overall improvement, he was determined to no longer require inpatient care was felt to be stable for discharge. He will follow-up with general surgery in 1 week for further monitoring. We discussed worrisome signs and sym
== END 2021-05-29 16:30 | disposition home or self-care (01) | DRG 720 ==
LOC: ANHED 17:12 → ANH3MED 05-27 07:43
PROVIDERS: Surgery; Admitting Provider Internal Medicine; Emergency Provider Emergency Medicine; Visit Provider Physician Assistant
DX: A41.9 Sepsis, unspecified organism (principal); K57.20 Diverticulitis of large intestine with perforation and abscess without bleeding; N17.9 Acute kidney failure, unspecified; K56.7 Ileus, unspecified; N30.90 Cystitis, unspecified without hematuria
CPT/HCPCS: 36415; 74177; 80048; 80053; 81001; 83605; 83690; 83735; 85025; 85055; 96361; 96365; 96375; 99285; A9270; J0744; J1650; J2270; J3475; J7030; Q9967

== ENCOUNTER 2021-06-01 07:51 | Inpatient (IN) | payer MEDICAID, SELFPAY ==
[2021-06-01] VITALS (31 sets, daily range): BP systolic 113–145; BP diastolic 64–89; PULSE 80–114; RESP 11–22; TEMP 36.2–37.1; O2SAT 92–99; BMI 24.6
--- NOTE | ~2021-06-01 | XR_ITS ---
EXAMINATION: XR chest 1V portable DATE: 06/01/2021 08:40 INDICATION: Abdominal pain. TECHNIQUE: A single frontal view of the chest was obtained. COMPARISON: CT abdomen and pelvis 05/26/2021 FINDINGS: There is mild atelectasis at the lung bases. No pleural effusion or pneumothorax. The heart size is normal. There is free intraperitoneal gas. IMPRESSION: 1. Free intraperitoneal gas, consistent with perforated viscus. 2. Mild atelectasis at the lung bases. Reviewed, dictated and finalized at location A.
--- NOTE | ~2021-06-01 | XR_ITS ---
EXAMINATION: XR abdomen obstructive series DATE: 06/01/2021 08:41 INDICATION: Left lower quadrant abdominal pain. TECHNIQUE: Upright and supine views of the abdomen on 4 radiographs were obtained. COMPARISON: CT abdomen and pelvis 05/26/2021 FINDINGS: There are dilated loops of small bowel. The colon is decompressed. There is free intraperit [place] gas. There is mild atelectasis at the lung bases. IMPRESSION: 1. Free intraperitoneal gas, consistent with perforated viscus. 2. Dilated small bowel, consistent with adynamic ileus versus bowel obstruction. Reviewed, dictated and finalized at location A. IMPRESSION: 1. Free intraperitoneal gas, consistent with perforated viscus. 2. Dilated small bowel, consistent with adynamic ileus versus bowel obstruction .
--- NOTE | ~2021-06-01 | CT_ITS ---
EXAMINATION: CT abdomen pelvis w con DATE: 06/01/2021 09:19 INDICATION: Low abdominal pain. TECHNIQUE: Computed tomography (CT) of the abdomen and pelvis was performed with 100 mL Omnipaque 350 intravenous contrast. Automated exposure control and iterative reconstruction technique were employe d. The dose-length product was 486.70 mGy-cm. COMPARISON: CT abdomen and pelvis 05/26/2021 FINDINGS: The visualized portions of the lung bases demonstrate mild atelectasis. There are small ple ural effusions. The heart size is normal. There are coronary artery calcifications. There is a small pericardial effusion. The liver, gallbladder, spleen, pancreas, adrenal glands, and kidneys are queenie l. There are scattered diverticula in the colon. There is wall thickening of the sigmoid colon and mu ltiple loops of small bowel. The appendix is normal. There is free intraperitoneal gas under the diap hragm. There is a small volume of ascites. There is a rim-enhancing abscess in the midabdomen measuri ng 6.0 x 4.2 x 6.9 cm. In the right anterior abdomen, there is a 3.0 x 2.1 x 3.1 cm rim-enhancing abs cess. There are other smaller abscesses in the peritoneum. There is widespread stranding of the intra -abdominal fat. There are dilated loops of small bowel, consistent with adynamic ileus versus partial obstruction. There is a small sliding hiatal hernia. There are no pathologically enlarged lymph node s. There is mild thoracolumbar spondylosis. IMPRESSION: 1. Perforated sigmoid diverticulitis with free gas under the diaphragm, peritonitis, multiple abscess es, and small volume of ascites. 2. Dilated small bowel, consistent with adynamic ileus versus partial small bowel obstruction. 3. Small pleural effusions. 4. Small pericardial effusion. Reviewed, dictated and finalized at location A. IMPRESSION: 1. Perforated sigmoid diverticulitis with free gas under the diaphragm, periton itis, multiple abscesses, and small volume of ascites. 2. Dilated small bowel, consistent with adynamic ileus versus partial small bow el obstruction. 3. Small pleural effusions. 4. Small pericardial effusion.
--- NOTE | 2021-06-01 08:08 | ECG_ITS ---
Measurements Intervals [place] Rate: 104 P: 15 CO: 98 QRS: 36 QRSD: 105 T: 33 QT: 344 QTc: 454 Interpretive Statements SINUS TACHYCARDIA WITH SHORT CO INTERVAL BASELINE ARTIFACT- I, II, III, AVR, AVL, AVF, V1-V6 BORDERLINE ECG Electronically Signed On 06-01-2021 15:14:10 CDT by Selvin Pedroza D.O.
--- NOTE | 2021-06-01 08:10 | ED.ABDPAIN ---
HPI - Abdominal Pain General Chief Complaint: Abdominal Pain Stated Complaint: ABD PAIN Time Seen by Provider: 06/01/21 08:12 Source: patient and family Mode of arrival: ambulatory Limitations: no limitations History of Present Illness HPI narrative: Patient is a 50-year-old male with a recent history of diverticulitis with microperforations and abscess, discharged home May 29, who returns for recurrence of severe abdominal pain. Pain occurred acutely this morning approximately 1 hour prior to arrival. Sharp, stabbing in nature in the lower abdomen associated with abdominal distention. Patient reports he is having difficulty taking a deep breath secondary to the abdominal pain. No chest pain. States he feels diaphoretic and nauseous. Patient saw Dr. Kruger while in house, improved and did not require any surgical management. Patient denies any urinary symptoms. Patient denies any fever, chills, cough, shortness of breath, rhinorrhea. No recent sick contacts. Related Data Allergies Allergy/AdvReac Type Severity Reaction Status Date / Time No Known Allergies Allergy Verified 06/12/18 10:32 Review of Systems Review of Systems: Narrative: CONSTITUTIONAL: Denies fever, chills, or sweats. EYES: Denies visual changes, redness, or discharge. ENT: Denies rhinorrhea, congestion, sore throat, or otalgia. CARDIOVASCULAR: Denies chest pain, palpitations, or edema. RESPIRATORY: Denies cough or dyspnea. Reports pain with inspiration. GASTROINTESTINAL: Reports abdominal pain, nausea, denies vomiting GENITOURINARY: Denies dysuria or hematuria. SKIN: Denies rash or itching. MUSCULOSKELETAL: Denies back pain, joint pain, or myalgia. NEUROLOGIC: Denies headache, numbness, or weakness. [facility] Past Medical History Medical History (Updated 06/01/21 @ 09:35 by Catarina Oquendo MD) Abnormal finding on CT scan Acute kidney injury (~05/2021) Cystitis (~05/26/21) Diverticulitis large intestine Ileus (~05/26/21) Perforation of sigmoid colon due to diverticulitis (~05/26/21) Sepsis Social History Social History Smoking packs per day: 1 Smoking cigarettes per day: 20.0 Smoking status: Former smoker Alcohol intake: never Substance use: never Gender identity (if verbalized by the patient): Male Spiritual care concerns: No Exam Narrative: Exam Narrative: GENERAL: Awake, alert, pale, diaphoretic HEAD: Normocephalic, atraumatic. EYES: PERRLA and EOMI. ENT: Nares clear, no rhinorrhea or epistaxis. Mucous membranes dry. NECK: Supple. CHEST: No respiratory distress, breathing even and non labored HEART: Borderline tachycardia, sinus rhythm ABDOMEN: Distention present, tender throughout, positive rebound, positive guarding in the bilateral right and left lower quadrant EXTREMITIES: Normal range of motion. No edema. SKIN: Warm, dry, no rash. NEURO:No focal deficits. Alert and oriented x3 Course Vital Signs Vital signs: Vital Signs Temperature 36.7 C 06/01/21 07:56 Pulse Rate 99 06/01/21 07:56 Respiratory Rate 20 06/01/21 07:56 Blood Pressure 121/78 06/01/21 07:56 Pulse Oximetry 99 06/01/21 07:56 Temperature 36.7 C 06/01/21 07:56 Pulse Rate 107 H 06/01/21 08:31 Respiratory Rate 19 06/01/21 08:31 Blood Pressure 127/74 06/01/21 08:30 Pulse Oximetry 94 06/01/21 08:31 MDM - Abdominal Pain MDM Narrative Medical decision making narrative: Patient presented for acute onset of abdominal pain and had an acute abdomen at the time of assessment. At the time of assessment vital signs are stable, patient is borderline tachycardic, no hypotension. Patient was ill-appearing, was given IV fluids, antiemetic and pain medication. Physical exam is notable for distention, rebound, extreme tenderness. Given recent history of diverticulitis I was concerned for perforated viscus, thus a upright chest x-ray and KUB was obtained which does confirm free air
[2021-06-01] MEDS: MORPHINE SULFATE (*CRX) 4 MG/ML INJ IV PUSH (08:14)
[2021-06-01] MEDS: ONDANSETRON INJ 4 MG/2 ML VIAL IV PUSH ×2 (08:14→14:19)
[2021-06-01] MEDS: SODIUM CHLORIDE 0.9% IV 2,000 ML 999 ML IV CONT (08:27)
[2021-06-01 08:33] LABS: Glucose Point of Care 130 mg/dl (65-105)
[2021-06-01 08:49] LABS: Lactic Acid Reflex 2.5 mmol/L (0.7-2.1)
[2021-06-01 08:50] LABS: Alanine Aminotransferase 28 U/L (4-50); Albumin Level 4.1 g/dL (3.5-5.1); Alkaline Phosphatase 65 U/L (38-126); Anion Gap 14 mmol/L (8-16); Aspartate Amino Transferase 53 U/L (17-59); Bilirubin,Total 0.8 mg/dL (0.2-1.3); Blood Urea Nitrogen 13 mg/dL (9-20); Calcium 9.1 mg/dL (8.4-10.2); Carbon Dioxide 28 mmol/L (22-30); Chloride 93 mmol/L (98-107); Estimated CRCL calculation 78 ml/min; Estimated Glomerular Filt Rate > 60; Glucose 152 mg/dL (75-110); Potassium 3.6 mmol/L (3.4-5.0); Sodium 135 mmol/L (137-145)
[2021-06-01 08:51] LABS: Hematocrit 46.6 % (42.0-52.0); Hemoglobin 14.6 g/dL (14.0-18.0); Mean Corpuscular HGB Conc 31.3 g/dl (32-36); Mean Corpuscular Hemoglobin 29.7 pg (26-34); Mean Corpuscular Volume 94.7 fl (80-100); Platelet Count Result 375 k/mm3 (150-375); Red Blood Count 4.92 M/mm3 (4.6-6.20); Red Cell Distribution Width 13.2 % (11.5-14.5); White Blood Count 9.7 K/mm3 (4.5-10.0)
[2021-06-01 08:52] LABS: INR 1.2; Prothrombin Time 14.6 Seconds (11.1-14.7)
[2021-06-01 08:53] LABS: Partial Thromboplastin Time 28.6 SECONDS (22.3-36.8)
[2021-06-01 09:14] LABS: Band Neutrophils Percent 14 % (0-6); Lymphocytes Absolute Manual 1.64 K/mm3 (1.1-4.5); Monocytes Absolute Manual 0.48 K/mm3 (0.1-0.90); Monocytes Percent Manual 5 % (3-9); Neutrophils Absolute Manual 7.56 K/mm3 (1.3-6.7); Neutrophils Percent Manual 64 % (46-73); Total Cells Counted 100
[2021-06-01 09:15] LABS: Platelet Estimate Adequate (Adequate)
[2021-06-01] MEDS: HYDROmorphone HCL INJ (*CRX) 1 MG/ML SYR 0.5 MG IV PUSH (09:29)
[2021-06-01 10:22] LABS: Add Urine Microscopic? YES; Appearance Urine Clear (Clear); Bacteria Urine Trace /hpf; Bilirubin Urine Negative (Negative); Blood Urine Negative (Negative); Color Urine Yellow (Yellow); Glucose Urine UA Negative (Negative); Ketones Urine 1+ mg/dL (Negative); Leukocyte Esterase Ur Trace LEU/UL (Negative); Mucus Urine Few /lpf; Nitrate Urine Negative (Negative); Protein Urine 1+ mg/dL (Negative); Urobilinogen Urine Negative mg/dL (<2.0)
[2021-06-01 10:24] LABS: Specific Grav Ur > 1.060 (1.001-1.035)
--- NOTE | 2021-06-01 10:46 | ADMGEN ---
This patient, Giovani Diaz, was admitted to IMU Room 210-01. Patient/family oriented to hospital policies and general routines including ID bracelet, bed and alarms, visiting hours, pain management, procedures, bathroom and other care routines, personal items, smoking policy, room service/diet, and visiting hours. Information on how to activate the Rapid Response Team has been discussed. Patient/Family are encouraged to report perceived risks to care and to ask questions if they do not understand what they are told or what they should do.
[2021-06-01] MEDS: SODIUM CHLORIDE 0.9% IV 1,000 ML 150 ML IV CONT (10:53)
[2021-06-01 11:36] LABS: Reflex Lactic Acid Yes or No Add Lactic
[2021-06-01] MEDS: HYDROmorphone HCL INJ (*CRX) 1 MG/ML SYR IV PUSH (11:55)
[2021-06-01 12:20] LABS: Lactic Acid 2.4 mmol/L (0.7-2.1)
--- NOTE | 2021-06-01 13:46 | WPDHPUPDATE1 ---
History and Physical Update Update Date/Time: 06/01/21 13:46 History and Physical has been reviewed, including an updated exam of the patient. There are NO changes in the patient's condition. Risks, benefits, and alternatives have been discussed and questions answered. Patient agrees to proceed with procedure.
--- NOTE | 2021-06-01 13:46 | PM.IMHP ---
H&P: HPI History of Present Illness Date/Time: 06/01/21 13:46 Chief Complaint: lower abdominal pain Narrative: This is a 50 yo man who presented to the ED this AM with severe abdominal pain. He had a sudden popping feeling in his abdomen and pain then worsened. He denies fevers or chills. He was recently admitted for diverticulitis last week. He was here for several days and was slowly improving. He still continued to have some lower abdominal pain and was not able to eat very much since being discharged. Denied fevers or chills. CT in the emergency department shows evidence of perforated diverticulitis with free air and multiple abscesses. Review of Systems Review of Systems: All systems reviewed & are unremarkable except as noted in HPI and below Eyes: Eyes: Denies change in vision ENT: Denies hearing loss, Denies neck pain and Denies sore throat Cardiovascular: Cardiovascular: Denies chest pain and Denies dyspnea Respiratory: Respiratory: Denies cough, Denies dyspnea and Denies wheezing Gastrointestinal: Gastrointestinal: Reports as per HPI Genitourinary: Genitourinary: Denies hematuria and Denies dysuria Musculoskeletal: Musculoskeletal: Denies arthralgias, Denies joint swelling and Denies neck pain Allergic/Immunologic: Allergic/Immunologic: Denies wheezing PMFSH Past Medical History Medical History Abnormal finding on CT scan Acute kidney injury (~05/2021) Cystitis (~05/26/21) Diverticulitis large intestine Ileus (~05/26/21) Perforation of sigmoid colon due to diverticulitis (~05/26/21) Sepsis Social History Social History Smoking packs per day: 1.5 Smoking cigarettes per day: 30.0 Smoking status: Former smoker Smoking end date: 12/07/12 Alcohol intake: never Substance use: never Substance use type: does not use Gender identity (if verbalized by the patient): Male Spiritual care concerns: No Meds Home Medications and Allergies Home Medications Medication Instructions Recorded Confirmed Type ciprofloxacin HCl [Cipro] 500 mg PO Q12H #17 tablet 05/29/21 06/01/21 Rx metronidazole 500 mg PO Q8H #25 tablet 05/29/21 06/01/21 Rx Allergies Allergy/AdvReac Type Severity Reaction Status Date / Time No Known Allergies Allergy Verified 06/01/21 11:14 Vital Signs Vital Signs - 24 hr 06/01/21 07:56 06/01/21 08:13 06/01/21 08:15 Temperature 36.7 C Pulse Rate 99 108 H 104 H Respiratory Rate 20 21 H 15 Blood Pressure 121/78 Pulse Oximetry 99 95 98 06/01/21 08:16 06/01/21 08:30 06/01/21 08:31 Temperature Pulse Rate 105 H 108 H 107 H Respiratory Rate 12 12 19 Blood Pressure 113/67 127/74 Pulse Oximetry 98 96 94 06/01/21 08:45 06/01/21 08:46 06/01/21 09:02 Temperature Pulse Rate 109 H 110 H 99 Respiratory Rate 20 12 20 Blood Pressure 120/76 116/64 Pulse Oximetry 93 95 94 06/01/21 09:03 06/01/21 09:20 06/01/21 09:22 Temperature Pulse Rate 98 101 H 97 Respiratory Rate 16 20 18 Blood Pressure 145/81 H Pulse Oximetry 94 95 94 06/01/21 09:33 06/01/21 09:45 06/01/21 09:46 Temperature Pulse Rate 97 93 96 Respiratory Rate 15 14 20 Blood Pressure 142/70 H Pulse Oximetry 92 93 93 06/01/21 10:00 06/01/21 10:01 06/01/21 10:15 Temperature Pulse Rate 102 H 104 H 97 Respiratory Rate 18 17 20 Blood Pressure 139/78 Pulse Oximetry 95 94 94 06/01/21 10:16 06/01/21 10:53 Temperature 37.1 C Pulse Rate 98 97 Respiratory Rate 20 22 H Blood Pressure 128/89 127/72 Pulse Oximetry 94 93 Exam Const: General: alert; No acute distress Orientation/consciousness: patient oriented x3 Limitations: no limitations HENMT: Head: normocephalic and atraumatic Ears: hearing grossly normal bilaterally General nose exam: Normal external nose present and Normal nares present Mouth: Yes Normal oral and palatal mucosa pre
--- NOTE | 2021-06-01 14:43 | WPDANESEPPF ---
Anes - Initial Pre Proc Eval Procedure: Operation Date: 06/01/21 15:00 Proposed Procedures p Exploratory Laparotomy, Pos Bowel Resec - Robert Serna DO Date/Time: 06/01/21 14:43 Surgeon: Robert Serna DO Pre Op Diagnosis: Perforated viscus Patient Data Age: 50 Gender: M Height: 1.88 m Weight: 87 kg Last Vital Signs Temp 37.1 C 06/01/21 10:53 Pulse 97 06/01/21 10:53 Resp 22 H 06/01/21 10:53 BP 127/72 06/01/21 10:53 Pulse Ox 93 06/01/21 10:53 Allergies Allergy/AdvReac Type Severity Reaction Status Date / Time No Known Allergies Allergy Verified 06/01/21 11:14 Home Medications Medication Instructions Recorded Confirmed Type ciprofloxacin HCl [Cipro] 500 mg PO Q12H #17 tablet 05/29/21 06/01/21 Rx metronidazole 500 mg PO Q8H #25 tablet 05/29/21 06/01/21 Rx Laboratory Tests 06/01/21 06/01/21 06/01/21 08:30 08:30 08:30 WBC RBC Hgb Hct MCV MCH MCHC RDW Plt Count MPV Immature Gran % (Auto) Neut % (Auto) Lymph % (Auto) [place] % (Auto) Eos % (Auto) Baso % (Auto) Lymph # (Auto) [place] # (Auto) Eos # (Auto) Baso # (Auto) Abs Immat Gran (auto) Absolute Neuts (auto) Absolute Nucleated RBC Total Counted Neutrophils % (Manual) Band Neutrophils % Lymphocytes % (Manual) Monocytes % (Manual) Nucleated RBC % Abs Neuts (Manual) Abs Lymphs (Manual) Abs Monocytes (Manual) Platelet Estimate PT 14.6 Seconds Seconds (11.1-14.7) INR 1.2 APTT 28.6 SECONDS SECONDS (22.3-36.8) Sodium 135 mmol/L L mmol/L (137-145) Potassium 3.6 mmol/L mmol/L (3.4-5.0) Chloride 93 mmol/L L mmol/L (98-107) Carbon Dioxide 28 mmol/L mmol/L (22-30) Anion Gap 14 mmol/L mmol/L (8-16) BUN 13 mg/dL mg/dL (9-20) Creatinine 1.20 mg/dL mg/dL (0.7-1.3) Estim Creat Clear Calc 78 ml/min ml/min Estimated GFR > 60 (59 - ) Glucose 152 mg/dL H mg/dL (75-110) POC Capillary Glucose 130 mg/dl H mg/dl (65-105) Lactic Acid Calcium 9.1 mg/dL mg/dL (8.4-10.2) Total Bilirubin 0.8 mg/dL mg/dL (0.2-1.3) AST 53 U/L U/L (17-59) ALT 28 U/L U/L (4-50) Alkaline Phosphatase 65 U/L U/L (38-126) Total Protein 8.0 g/dL g/dL (6.3-8.2) Albumin 4.1 g/dL g/dL (3.5-5.1) Urine Color Urine Appearance Urine pH Ur Specific [place] Urine Protein Urine Glucose (UA) Urine Ketones Ur Blood (Man) Urine Nitrate Urine Bilirubin Urine Urobilinogen Leukocyte Esterase Rfl Urine RBC Urine WBC Urine Bacteria Urine Mucus Blood Type Antibody Screen 06/01/21 06/01/21 06/01/21 08:31 08:31 10:13 WBC 9.7 K/mm3 K/mm3 (4.5-10.0) RBC 4.92 M/mm3 M/mm3 (4.6-6.20) Hgb 14.6 g/dL g/dL (14.0-18.0) Hct 46.6 % % (42.0-52.0) MCV 94.7 fl fl (80-100) MCH 29.7 pg pg (26-34) MCHC 31.3 g/dl L g/dl (32-36) RDW 13.2 % % (11.5-14.5) Plt Count 375 k/mm3 D k/mm3 (150-375) MPV 9.0 fl fl (7.4-10.4) Immature Gran % (Auto) Not Reportable Neut % (Auto) Not Reportable Lymph % (Auto) Not Reportable [place] % (Auto) Not Reportable Eos % (Auto) Not Reportable
[2021-06-01] MEDS: LACTATED RINGERS 1,000 ML 30 ML IV CONT ×2 (14:45→17:08)
[2021-06-01] MEDS: SOD HYALURONATE/CARBOXYMETHYLCELLULOSE 5X6 2 EACH TOPICAL (16:11)
--- NOTE | 2021-06-01 17:33 | W.PM.PROC2 ---
Procedure Note - Detailed Date of Procedure 06/01/21 Pre-op Diagnosis Perforated sigmoid diverticulitis, Sepsis Post-op Diagnosis same Procedure Performed 1. Exploratory laparotomy 2. Sigmoid colectomy with end descending colostomy 3. Drainage of multiple intra-abdominal abscesses Surgeon Robert Serna, DO Anesthesia general Indications this is a 50-year-old man who presented to the emergency department this morning with worsening left lower quadrant abdominal pain. He had recently been admitted for diverticulitis and CT at that time diverticulitis with microperforation. He was admitted and treated with IV antibiotics and slowly progressed. He was discharged home oral antibiotics and low-fiber diet. This morning he felt a pop and more severe pain in his lower abdomen. A repeat CT in the emergency department this morning showed evidence of perforation with free air and multiple intra-abdominal abscesses. He was noted to have peritoneal signs on exam. Discussions were made with the patient treatment options and decision was made to proceed with exploratory laparotomy with possible bowel resection and possible ostomy. Findings Exploratory laparotomy was performed. The patient had multiple intra-abdominal abscesses and dilated small bowel. Upon inspecting the left lower quadrant the area perforation was identified on the sigmoid colon. There were multiple adhesions around this that had to be carefully broken up and more abscesses were identified as the adhesions were taken down. Sigmoid colectomy was performed. The bowel proximal to this still appeared very indurated and there were phlegmonous changes all around the descending colon. Reanastomosis with all the intra-abdominal infection appeared too high risk, therefore a descending colostomy was performed. The abdomen was irrigated with several L of sterile saline. No other significant abnormalities were identified. Description of Procedure Procedure as well as risks, benefits, and alternatives were discussed with the patient. Written consent was obtained and placed in chart prior to procedure. Patient was brought back to surgical suite. He was placed supine on operating table. Time-out was done to confirm patient and procedure. He was then intubated by the Anesthesia Department. His abdomen was prepped and draped in sterile fashion using chlorhexidine prep. He was placed in modified lithotomy position case there is a possibility of anastomosis. A 15 cm vertical midline incision was made from just superior to the umbilicus all the way down to the suprapubic region using a 10 blade scalpel. Electrocautery was used for hemostasis and for dissection through the subcutaneous tissue. The linea alba was identified and incised using electrocautery. The peritoneum was then entered using electrocautery. Upon entering the abdominal cavity, there were multiple pockets purulence fluid upper and drained. The bowel was carefully inspected and an Daryn wound protector was then placed the incision. There were multiple adhesions that were carefully taken and further abscess pockets were identified and drained. Upon inspecting the pelvis was able to area the sigmoid that appeared to be location perforation. There were loops of small bowel adherent down to this area as I took these adhesions down was able to identify the sigmoid colon better. The lateral peritoneal attachments carefully taken down using electrocautery and care was identified to identify the location of left ureter and prevent any injury to the left ureter. The descending colon lateral peritoneal attachments were also taken to allow for mobilization of the colon for ostomy. A window was then created in the mesorectum just below the rectosigmoid junction and a contour stapler was then advanced across the rectum at this location. Stapler was fired. A location along the descending colon was then identified for proximal transection a
[2021-06-01] MEDS: LACTATED RINGERS 1,000 ML 150 ML IV CONT ×2 (18:56→22:24)
[2021-06-01] MEDS: IBUPROFEN IV 800 MG/200 ML 800 MG/200 ML BAG 400 MG IVPB (18:58)
[2021-06-02] VITALS (11 sets, daily range): BP systolic 106–115; BP diastolic 62–76; PULSE 73–90; RESP 16–18; TEMP 36.2–36.5; O2SAT 92–95
[2021-06-02] MEDS: IBUPROFEN IV 800 MG/200 ML 800 MG/200 ML BAG 400 MG IVPB ×5 (01:50→23:24)
[2021-06-02 05:16] LABS: Hematocrit 41.7 % (42.0-52.0); Hemoglobin 13.2 g/dL (14.0-18.0); Mean Corpuscular HGB Conc 31.7 g/dl (32-36); Mean Corpuscular Hemoglobin 29.5 pg (26-34); Mean Corpuscular Volume 93.3 fl (80-100); Mean Platelet Volume 8.9 fl (7.4-10.4); Platelet Count Result 332 k/mm3 (150-375); Red Blood Count 4.47 M/mm3 (4.6-6.20); Red Cell Distribution Width 13.4 % (11.5-14.5)
[2021-06-02 05:34] LABS: Anion Gap 8 mmol/L (8-16); Blood Urea Nitrogen 20 mg/dL (9-20); Carbon Dioxide 24 mmol/L (22-30); Chloride 102 mmol/L (98-107); Estimated CRCL calculation 72 ml/min; Estimated Glomerular Filt Rate 59; Glucose 165 mg/dL (75-110); Potassium 3.7 mmol/L (3.4-5.0); Sodium 134 mmol/L (137-145)
[2021-06-02 07:20] LABS: Band Neutrophils Percent 5 % (0-6); Lymphocytes Absolute Manual 1.02 K/mm3 (1.1-4.5); Monocytes Absolute Manual 0.51 K/mm3 (0.1-0.90); Monocytes Percent Manual 3 % (3-9); Neutrophils Absolute Manual 15.47 K/mm3 (1.3-6.7); Neutrophils Percent Manual 86 % (46-73); Total Cells Counted 100
[2021-06-02 07:21] LABS: Burr Cells 2+ (NORMAL); Platelet Estimate Adequate (Adequate)
--- NOTE | 2021-06-02 07:36 | WPDANESPN ---
Anes - Prog Note Post-Op Date/Time: 06/02/21 07:36 Cardiovascular status: normal Respiratory status: normal Airway patency: baseline Mental status: baseline Post-Op hydration status: normal Vital Signs: Last Vital Signs Temp 36.5 C 06/02/21 03:59 Pulse 81 06/02/21 05:57 Resp 17 06/02/21 04:00 BP 106/66 06/02/21 03:59 Pulse Ox 94 06/02/21 04:00 Pain Score (VAS): ng to suction, sitting in chair I/O: Intake & Output 06/01/21 06/01/21 06/02/21 15:59 23:59 07:59 Intake Total 2250 1750 600 Output Total 30 320 Balance 2250 1720 280 Laboratory Tests 06/02/21 04:53 06/02/21 04:53 06/01/21 06/01/21 06/01/21 08:30 08:30 08:30 WBC RBC Hgb Hct MCV MCH MCHC RDW Plt Count MPV Immature Gran % (Auto) Neut % (Auto) Lymph % (Auto) [place] % (Auto) Eos % (Auto) Baso % (Auto) Lymph # (Auto) [place] # (Auto) Eos # (Auto) Baso # (Auto) Abs Immat Gran (auto) Absolute Neuts (auto) Absolute Nucleated RBC Total Counted Neutrophils % (Manual) Band Neutrophils % Lymphocytes % (Manual) Monocytes % (Manual) Nucleated RBC % Abs Neuts (Manual) Abs Lymphs (Manual) Abs Monocytes (Manual) Platelet Estimate [place] Cells PT 14.6 INR 1.2 APTT 28.6 Sodium 135 L Potassium 3.6 Chloride 93 L Carbon Dioxide 28 Anion Gap 14 BUN 13 Creatinine 1.20 Estim Creat Clear Calc 78 Estimated GFR > 60 Glucose 152 H POC Capillary Glucose 130 H Lactic Acid Calcium 9.1 Total Bilirubin 0.8 AST 53 ALT 28 Alkaline Phosphatase 65 Total Protein 8.0 Albumin 4.1 Urine Color Urine Appearance Urine pH Ur Specific [place] Urine Protein Urine Glucose (UA) Urine Ketones Ur Blood (Man) Urine Nitrate Urine Bilirubin Urine Urobilinogen Leukocyte Esterase Rfl Urine RBC Urine WBC Urine Bacteria Urine Mucus Blood Type Antibody Screen 06/01/21 06/01/21 06/01/21 08:31 08:31 10:13 WBC 9.7 RBC 4.92 Hgb 14.6 Hct 46.6 MCV 94.7 MCH 29.7 MCHC 31.3 L RDW 13.2 Plt Count 375 D MPV 9.0 Immature Gran % (Auto) Not Reportable Neut % (Auto) Not Reportable Lymph % (Auto) Not Reportable [place] % (Auto) Not Reportable Eos % (Auto) Not Reportable Baso % (Auto) Not Reportable Lymph # (Auto) Not Reportable [place] # (Auto) Not Reportable Eos # (Auto) Not Reportable Baso # (Auto) Not Reportable Abs Immat Gran (auto) Not Reportable Absolute Neuts (auto) Not Reportable Absolute Nucleated RBC Not Reportable Total Counted 100 Neutrophils % (Manual) 64 Band Neutrophils % 14 H Lymphocytes % (Manual) 17.0 L Monocytes % (Manual) 5 Nucleated RBC % Not Reportable Abs Neuts (Manual) 7.56 H Abs Lymphs (Manual) 1.64 Abs Monocytes (Manual) 0.48 Platelet Estimate Adequate [place] Cells PT INR APTT Sodium Potassium Chloride Carbon Dioxide Anion Gap BUN Creatinine Estim Creat Clear Calc Estimated GFR Glucose POC Capillary Glucose Lactic Acid 2.5 H Calcium Total Bilirubin AST ALT Alkaline Phosphatase Total Protein Albumin Urine Color Yellow Urine Appearance Clear Urine pH 6.0 Ur Specific [place] > 1.060 H Urine Protein 1+ H Urine Glucose (UA) Negative Urine Ketones 1+ H Ur Blood (Man) Negative Urine Nitrate Negative Urine Bilirubin Negative Urine Urobilinogen Negative Leukocyte Esterase Rfl Trace H Urine RBC 3-5 H Urine WBC 4-6 H Urine Bacteria Trace Urine Mucus Few H Blood Type Antibody Screen 06/01/21 06/01/21 06/02/21 11:58 12:14 04:53 WBC 17.0 H RBC 4.47 L Hgb 13.2 L Hct 41.7 L MCV 93.3 MCH 29.5 MCHC 31.7 L RDW 13.4 Plt Count 332 MPV 8.9 Angela
[2021-06-02] MEDS: ENOXAPARIN 40 MG/0.4 ML SYRINGE SUB-Q (08:11)
--- NOTE | 2021-06-02 13:02 | PM.PNGS ---
Progress Note: A&P Assessment and Plan (1) Diverticulitis large intestine: Qualifiers: Diverticulitis bleeding: without bleeding Diverticulitis complication: with perforation and abscess Qualified Code(s): K57.20 - Diverticulitis of large intestine with perforation and abscess without bleeding Code(s): K57.32 - Diverticulitis of large intestine without perforation or abscess without bleeding Status: Acute Assessment and Plan: Remaining stable on POD#1. Transfer out of IMU to Med-surg floor. Mcintosh out. Increase activity. NG remains in place. Continue IV Zosyn. (2) Sepsis: Qualifiers: Sepsis acute organ dysfunction status: unspecified Sepsis type: sepsis due to unspecified organism Qualified Code(s): A41.9 - Sepsis, unspecified organism Code(s): A41.9 - Sepsis, unspecified organism Status: Acute Subjective Subjective Date/Time Seen: 06/02/21 13:02 Interval history: Pain well controlled with IV ibuprofen and acetaminophen. No fevers. Not any bowel function yet. Exam GI: Inspection: non-distended and incision (dressing dry) GI Palp: Yes Soft to palpation and Yes Tenderness to palpation present (GI) (incisional) Auscultation: Hypoactive bowel sounds present Other: Ostomy pink, minimal serous output in bag Objective Data Vital Signs Vital Signs: Vital Signs - 24 hr 06/01/21 17:18 06/01/21 17:20 06/01/21 17:35 Temperature 36.7 C Pulse Rate 92 86 81 Respiratory Rate 12 11 L 11 L Blood Pressure 113/70 122/74 119/77 Pulse Oximetry 97 99 95 06/01/21 17:50 06/01/21 18:04 06/01/21 18:22 Temperature 36.2 C L Pulse Rate 80 84 89 Respiratory Rate 13 20 20 Blood Pressure 119/78 120/79 120/77 Pulse Oximetry 95 96 93 06/01/21 19:49 06/01/21 20:00 06/01/21 22:00 Temperature 36.2 C L Pulse Rate 89 89 90 Respiratory Rate 18 18 Blood Pressure 126/73 Pulse Oximetry 93 93 06/01/21 23:59 06/02/21 00:00 06/02/21 02:00 Temperature 36.4 C Pulse Rate 88 88 84 Respiratory Rate 18 18 Blood Pressure 117/69 Pulse Oximetry 94 94 06/02/21 03:59 06/02/21 04:00 06/02/21 05:57 Temperature 36.5 C Pulse Rate 87 87 81 Respiratory Rate 17 17 Blood Pressure 106/66 Pulse Oximetry 94 94 06/02/21 07:43 06/02/21 12:00 Temperature 36.2 C L 36.2 C L Pulse Rate 88 90 Respiratory Rate 18 18 Blood Pressure 108/76 113/67 Pulse Oximetry 94 92 Intake/Output Intake/Output: Intake & Output 05/30/21 05/31/21 06/01/21 06/02/21 23:59 23:59 23:59 23:59 Intake Total 4000 700 Output Total 30 320 Balance 3970 380 Meds/Results Medications: Active Medications Generic Name Dose Route Start Last Admin Trade Name Freq PRN Reason Stop Dose Admin Enoxaparin Sodium 40 mg 06/02/21 09:00 06/02/21 08:11 Enoxaparin 40 Mg/0.4 Ml Syringe SUB-Q 40 mg DAILY TONY Administration Hydromorphone HCl 1 mg 06/01/21 18:14 Hydromorphone Hcl Inj (*Crx) 1 Mg/Ml Syr IV PUSH Q2H PRN Pain Rated 7-10 Hydromorphone HCl 0.5 mg 06/01/21 18:14 Hydromorphone Hcl Inj (*Crx) 1 Mg/Ml Syr IV PUSH Q2H PRN Pain Rated 4-6 Piperacillin/Tazobactam/Dextrose 3.375 gm in 50 mls @ 100 mls/hr 06/01/21 16:10 06/02/21 06:34 Zosyn 3.375 Gm/D5w 50ml Pm IVPB Infused Q6HR TONY Infusion Acetaminophen 1,000 mg in 100 mls @ 400 mls/hr 06/01/21 21:00 06/02/21 08:26 Ofirmev 1,000 Mg Ivpb IVPB 06/02/21 21:01 Infused Q6H TONY Infusion Ibuprofen 800 mg in 200 mls @ 400 mls/hr 06/01/21 18:00 06/02/21 07:07 Caldolor 800 Mg/200 Ml IVPB Infused Q6H TONY Infusion Potassium Chloride 10 meq/ 1,000 mls @ 125 mls/hr 06/02/21 13:05 Dextrose/Sodium Chloride IV CONT .Q8H TONY Ondansetron HCl 4 mg 06/01/21 09:32 06/01/21 14:19 Ondansetron Inj 4 Mg/2 Ml Vial IV PUSH 4 mg Q4H PRN Administration Nausea Radiology Results: ITS Impressions Chest X-Ray 06/01/21 08:44 IMPRESSION: 1. Free intraperi
[2021-06-02] MEDS: POTASSIUM CHLORIDE INJ 10 MEQ in DEXTROSE 5%/0.45% SOD CHL 1,000 ML 125 MEQ IV CONT ×2 (14:31→23:25)
--- NOTE | 2021-06-02 22:16 | PC.NURSE ---
This patient, Giovani Diaz, was received from IMU on 06/02/21 at 2200. Patient/family oriented to unit policies and routines. Received report from MIRIAM Jurado at 2150. Pt is alert and oriented and resting comfortably.
--- NOTE | 2021-06-03 00:22 | PC.NURSE ---
This patient, Giovani Diaz, was transferred to [ ] on 06/03/21 at 0022. Personal belongings sent with patient. Report given to [ ]. Appropriate documentation sent with patient. report given to Margaret PINEDA [id number] 06/02/2021
[2021-06-03 04:00] VITALS: BP 109/62; PULSE 70; RESP 18; TEMP 36.1; O2SAT 95
[2021-06-03 05:46] LABS: Hematocrit 32.8 % (42.0-52.0); Hemoglobin 10.3 g/dL (14.0-18.0); Mean Corpuscular HGB Conc 31.4 g/dl (32-36); Mean Corpuscular Hemoglobin 29.6 pg (26-34); Mean Corpuscular Volume 94.3 fl (80-100); Mean Platelet Volume 8.9 fl (7.4-10.4); Platelet Count Result 295 k/mm3 (150-375); Red Blood Count 3.48 M/mm3 (4.6-6.20); Red Cell Distribution Width 13.3 % (11.5-14.5); White Blood Count 19.5 K/mm3 (4.5-10.0)
[2021-06-03 06:01] LABS: Anion Gap 4 mmol/L (8-16); Blood Urea Nitrogen 17 mg/dL (9-20); Calcium 7.5 mg/dL (8.4-10.2); Carbon Dioxide 29 mmol/L (22-30); Chloride 100 mmol/L (98-107); Estimated CRCL calculation 93 ml/min; Estimated Glomerular Filt Rate > 60; Glucose 154 mg/dL (75-110); Potassium 3.3 mmol/L (3.4-5.0); Sodium 133 mmol/L (137-145)
[2021-06-03] MEDS: IBUPROFEN IV 800 MG/200 ML 800 MG/200 ML BAG 400 MG IVPB ×3 (06:47→18:04)
[2021-06-03 08:30] VITALS: BP 106/69; PULSE 76; RESP 18; TEMP 36.1; O2SAT 92
[2021-06-03] MEDS: ENOXAPARIN 40 MG/0.4 ML SYRINGE SUB-Q (09:54)
--- NOTE | 2021-06-03 11:28 | PM.PNGS ---
Progress Note: A&P Assessment and Plan (1) Diverticulitis large intestine: Qualifiers: Diverticulitis bleeding: without bleeding Diverticulitis complication: with perforation and abscess Qualified Code(s): K57.20 - Diverticulitis of large intestine with perforation and abscess without bleeding Code(s): K57.32 - Diverticulitis of large intestine without perforation or abscess without bleeding Status: Acute Assessment and Plan: Minimal output from NG since surgery. Will remove NG and allow sips of clears. Slowly increase activity. Await bowel function through ostomy. WBC still elevated, but no other signs of ongoing infection. Continue Zosyn and follow for other signs of infection. (2) Sepsis: Qualifiers: Sepsis acute organ dysfunction status: unspecified Sepsis type: sepsis due to unspecified organism Qualified Code(s): A41.9 - Sepsis, unspecified organism Code(s): A41.9 - Sepsis, unspecified organism Status: Acute Subjective Subjective Date/Time Seen: 06/03/21 11:28 Post Op day: 2 Interval history: Pain controlled. Feeling weak. Hungry, but not much in ostomy bag yet. No fevers. Exam GI: Inspection: non-distended and incision (minimal drainage) GI Palp: Yes Tenderness to palpation present (GI) (incisional) Auscultation: Hypoactive bowel sounds present Other: Ostomy pink, slightly edematous, minimal serous output Objective Data Vital Signs Vital Signs: Vital Signs - 24 hr 06/02/21 12:00 06/02/21 15:59 06/02/21 19:59 Temperature 36.2 C L 36.2 C L 36.4 C Pulse Rate 90 77 73 Respiratory Rate 18 18 18 Blood Pressure 113/67 110/68 115/62 Pulse Oximetry 92 94 95 06/02/21 23:34 06/03/21 04:00 06/03/21 08:30 Temperature 36.2 C L 36.1 C L 36.1 C L Pulse Rate 80 70 76 Respiratory Rate 16 18 18 Blood Pressure 111/64 109/62 106/69 Pulse Oximetry 93 95 92 Intake/Output Intake/Output: Intake & Output 05/31/21 06/01/21 06/02/21 06/03/21 23:59 23:59 23:59 23:59 Intake Total 4000 2500 360 Output Total 30 870 400 Balance 3970 1630 -40 Meds/Results Medications: Active Medications Generic Name Dose Route Start Last Admin Trade Name Freq PRN Reason Stop Dose Admin Enoxaparin Sodium 40 mg 06/02/21 09:00 06/03/21 09:54 Enoxaparin 40 Mg/0.4 Ml Syringe SUB-Q 40 mg DAILY TONY Administration Hydromorphone HCl 1 mg 06/01/21 18:14 Hydromorphone Hcl Inj (*Crx) 1 Mg/Ml Syr IV PUSH Q2H PRN Pain Rated 7-10 Hydromorphone HCl 0.5 mg 06/01/21 18:14 Hydromorphone Hcl Inj (*Crx) 1 Mg/Ml Syr IV PUSH Q2H PRN Pain Rated 4-6 Piperacillin/Tazobactam/Dextrose 3.375 gm in 50 mls @ 100 mls/hr 06/01/21 16:10 06/03/21 08:00 Zosyn 3.375 Gm/D5w 50ml Pm IVPB Infused Q6HR TONY Infusion Ibuprofen 800 mg in 200 mls @ 400 mls/hr 06/01/21 18:00 06/03/21 07:17 Caldolor 800 Mg/200 Ml IVPB Infused Q6H TONY Infusion Potassium Chloride 10 meq/ 1,000 mls @ 75 mls/hr 06/02/21 13:05 06/02/21 23:25 Dextrose/Sodium Chloride IV CONT 125 mls/hr .[id number] TONY Administration Ondansetron HCl 4 mg 06/01/21 09:32 06/01/21 14:19 Ondansetron Inj 4 Mg/2 Ml Vial IV PUSH 4 mg Q4H PRN Administration Nausea Radiology Results: ITS Impressions Chest X-Ray 06/01/21 08:44 IMPRESSION: 1. Free intraperitoneal gas, consistent with perforated viscus. 2. Mild atelectasis at the lung bases. Abdomen X-Ray 06/01/21 08:46 IMPRESSION: 1. Free intraperitoneal gas, consistent with perforated viscus. 2. Dilated small bowel, consistent with adynamic ileus versus bowel obstruction. Abdomen/Pelvis CT 06/01/21 09:20 IMPRESSION: 1. Perforated sigmoid diverticulitis with free gas under the diaphragm, peritonitis, multiple abscesses, and small volume of ascites. 2. Dilated small bowel, consistent with adynamic ileus versus partial small bowel obstruction. 3. Small pleural effusions. 4. Small pericardial ef
[2021-06-03] MEDS: POTASSIUM CHLORIDE INJ 10 MEQ in DEXTROSE 5%/0.45% SOD CHL 1,000 ML 125 MEQ IV CONT (12:03)
[2021-06-03 18:25] VITALS: BP 111/63; PULSE 89; RESP 18; TEMP 36.7; O2SAT 92
[2021-06-03 21:09] VITALS: BP 107/65; PULSE 82; RESP 18; O2SAT 95
--- NOTE | 2021-06-03 21:09 | ECG_ITS ---
Measurements Intervals [place] Rate: 87 P: 20 UT: 112 QRS: 24 QRSD: 110 T: 21 QT: 374 QTc: 450 Interpretive Statements SINUS RHYTHM WITH SHORT UT INTERVAL BASELINE ARTIFACT- I, II, III, AVR, AVL BORDERLINE ECG Electronically Signed On 06-04-2021 6:00:04 CDT by Selvin Pedroza D.O.
[2021-06-03 22:00] VITALS: BP 104/61; PULSE 80; RESP 16; TEMP 36.1; O2SAT 94
[2021-06-04] MEDS: IBUPROFEN IV 800 MG/200 ML 800 MG/200 ML BAG 400 MG IVPB ×2 (00:19→05:52)
[2021-06-04] MEDS: POTASSIUM CHLORIDE INJ 10 MEQ in DEXTROSE 5%/0.45% SOD CHL 1,000 ML 75 MEQ IV CONT (00:24)
[2021-06-04 02:00] VITALS: BP 114/68; PULSE 79; RESP 16; TEMP 36.6; O2SAT 93
[2021-06-04 05:40] LABS: Hematocrit 34.4 % (42.0-52.0); Hemoglobin 10.5 g/dL (14.0-18.0); Mean Corpuscular HGB Conc 30.5 g/dl (32-36); Mean Platelet Volume 8.9 fl (7.4-10.4); Platelet Count Result 325 k/mm3 (150-375); Red Blood Count 3.62 M/mm3 (4.6-6.20); Red Cell Distribution Width 13.4 % (11.5-14.5); White Blood Count 13.9 K/mm3 (4.5-10.0)
[2021-06-04 05:58] LABS: Anion Gap 4 mmol/L (8-16); Blood Urea Nitrogen 10 mg/dL (9-20); Calcium 7.5 mg/dL (8.4-10.2); Carbon Dioxide 28 mmol/L (22-30); Chloride 103 mmol/L (98-107); Estimated CRCL calculation 114 ml/min; Estimated Glomerular Filt Rate > 60; Glucose 124 mg/dL (75-110); Potassium 3.4 mmol/L (3.4-5.0); Sodium 135 mmol/L (137-145)
[2021-06-04 06:00] VITALS: BP 125/73; PULSE 80; RESP 16; TEMP 36.7; O2SAT 94
[2021-06-04] MEDS: ENOXAPARIN 40 MG/0.4 ML SYRINGE SUB-Q (09:04)
[2021-06-04 10:00] VITALS: BP 122/76; PULSE 84; RESP 16; TEMP 36.6; O2SAT 96
--- NOTE | 2021-06-04 10:03 | PM.PNGS ---
Progress Note: A&P Assessment and Plan (1) Diverticulitis large intestine: Qualifiers: Diverticulitis bleeding: without bleeding Diverticulitis complication: with perforation and abscess Qualified Code(s): K57.20 - Diverticulitis of large intestine with perforation and abscess without bleeding Code(s): K57.32 - Diverticulitis of large intestine without perforation or abscess without bleeding Status: Acute Assessment and Plan: Slowly improving. Having a lot of bloating after taking in liquids. Small amount of gas and output from ostomy this morning. Will continue clear liquids for now. Wound care nurses scheduled to perform ostomy teaching today. Will initiate local wound care to midline incision with daily gauze dressing changes. WBC trending down, afebrile. Continue IV Zosyn. Encouraged to increase activity and walk the halls, continue IS use. (2) Sepsis: Qualifiers: Sepsis acute organ dysfunction status: unspecified Sepsis type: sepsis due to unspecified organism Qualified Code(s): A41.9 - Sepsis, unspecified organism Code(s): A41.9 - Sepsis, unspecified organism Status: Acute Assessment and Plan: Secondary to #1 above. WBC trending down. Hemodynamically stable. Continue broad-spectrum IV abx. Blood cultures NGTD. (3) Chest pain: Code(s): R07.9 - Chest pain, unspecified Status: Acute Assessment and Plan: Resolved. Episode of left-sided chest pain overnight. EKG performed and was without any ischemic changes. After walking and having some gas passing through the ostomy, his pain has improved. Continue to monitor. Additional Plan I have discussed the plan of care with Dr. Serna. Subjective Subjective Date/Time Seen: 06/04/21 09:23 Post Op day: 3 (Ex lap, sigmoid colectomy with end descending colostomy, drainage of multiple intra-abd abscesses) Patient reports: pain is less (Still having incisional pain with movement, but improved and controlled), voiding w/o difficulty and afebrile Interval history: Patient seen this morning. He is still feeling weak today, but feels a bit better. Pain controlled. Reports significant bloating after very little intake of clear liquids. Small amount of gas and soft output in colostomy. No fevers. Reports an episode of left-sided chest pain overnight. He reports walking around the room and noticing some flatulence in the ostomy bag, with slow gradual relief of his chest pain after this. Denies chest pain or SOB this am. Review of Systems Review of Systems: All systems reviewed & are unremarkable except as noted in HPI and below Constitutional: Constitutional: Denies chills and Denies fever(s) Respiratory: Respiratory: Reports no additional respiratory complaints and Denies cough Gastrointestinal: Gastrointestinal: Reports as per HPI and Reports no additional gastrointestinal complaints Exam Const: General: comfortable; No acute distress Orientation/consciousness: patient oriented x3 Resp: Effort & Inspection: normal respiratory effort Auscultation: clear to auscultation bilaterally Cardio: Rate: regular rate Rhythm: regular rhythm GI: Inspection: non-distended and incision (midline incision with small amount of serosanguineous drainage) GI Palp: Yes Soft to palpation and Yes Tenderness to palpation present (GI) Auscultation: Hypoactive bowel sounds present Other: Ostomy pink, slightly edematous, with gas and small amount of soft, dark brown output in bag Skin: General skin exam: normal color Neuro: General: moves all extremities and no focal motor deficits Extrem: General: no clubbing, cyanosis or edema and no calf tenderness Psych: Mental Status: mental status grossly normal Judgement: Good judgement present (Psych) Objective Data Vital Signs Vital Signs: Vital Signs - 24 hr 06/03/21 18:25 06/03/21 21:09 06/03/21 22:00 Temperature 98.0 F 97.0 F L Pulse Rate 89 82 80 Respiratory
[2021-06-04 14:00] VITALS: BP 135/76; PULSE 94; RESP 16; TEMP 37; O2SAT 92
[2021-06-04] MEDS: IBUPROFEN 600 MG TABLET PO (17:43)
[2021-06-04 18:00] VITALS: BP 112/74; PULSE 112; RESP 20; TEMP 36.7; O2SAT 94
[2021-06-04 22:00] VITALS: BP 122/70; PULSE 91; RESP 16; TEMP 36.2; O2SAT 94
[2021-06-05 02:00] VITALS: BP 124/72; PULSE 87; RESP 16; TEMP 36.8; O2SAT 94
[2021-06-05 06:00] VITALS: BP 115/72; PULSE 101; RESP 18; TEMP 36.4; O2SAT 96
[2021-06-05 06:12] LABS: Basophils Absolute Auto 0.1 K/mm3 (0.0-0.1); Basophils Percent Auto 0.4 % (0.2-1.2); Eosinophils Absolute Auto 0.1 K/mm3 (0-0.3); Eosinophils Percent Auto 0.5 % (0-4.4); Hematocrit 35.8 % (42.0-52.0); Hemoglobin 11.3 g/dL (14.0-18.0); Immature Granulocyte Percent A 1.5 % (0-0.5); Lymphocytes Absolute Auto 0.85 K/mm3 (0.9-3.2); Lymphocytes Percent Auto 6.6 % (18.3-44.2); Mean Corpuscular HGB Conc 31.6 g/dl (32-36); Mean Corpuscular Hemoglobin 29.3 pg (26-34); Mean Corpuscular Volume 92.7 fl (80-100); Mean Platelet Volume 8.8 fl (7.4-10.4); Monocytes Absolute Auto 0.8 K/mm3 (0.1-0.6); Monocytes Percent Auto 6.5 % (2.6-8.5); Neutrophils Percent Auto 84.5 % (45.5-73.1); Platelet Count Result 365 k/mm3 (150-375); Red Blood Count 3.86 M/mm3 (4.6-6.20); Red Cell Distribution Width 13.4 % (11.5-14.5)
[2021-06-05 06:31] LABS: Anion Gap 6 mmol/L (8-16); Blood Urea Nitrogen 9 mg/dL (9-20); Calcium 7.7 mg/dL (8.4-10.2); Carbon Dioxide 27 mmol/L (22-30); Chloride 101 mmol/L (98-107); Estimated CRCL calculation 116 ml/min; Estimated Glomerular Filt Rate > 60; Glucose 105 mg/dL (75-110); Potassium 3.5 mmol/L (3.4-5.0); Sodium 134 mmol/L (137-145)
[2021-06-05] MEDS: ENOXAPARIN 40 MG/0.4 ML SYRINGE SUB-Q (08:03)
[2021-06-05] MEDS: IBUPROFEN 600 MG TABLET PO (08:58)
--- NOTE | 2021-06-05 09:01 | PM.PNGS ---
Progress Note: A&P Assessment and Plan (1) Diverticulitis large intestine: Qualifiers: Diverticulitis bleeding: without bleeding Diverticulitis complication: with perforation and abscess Qualified Code(s): K57.20 - Diverticulitis of large intestine with perforation and abscess without bleeding Code(s): K57.32 - Diverticulitis of large intestine without perforation or abscess without bleeding Status: Acute Assessment and Plan: Continues to improve. Bowel function returning with +ostomy output and he tolerating his diet. Will advance to soft diet today. Abd incision looks good. Continue local wound care. Continue IV Zosyn. WBC trending down, afebrile. Encouraged pt again today to be walking in the room and in the halls, increasing activity. Continue IS use. (2) Sepsis: Qualifiers: Sepsis acute organ dysfunction status: unspecified Sepsis type: sepsis due to unspecified organism Qualified Code(s): A41.9 - Sepsis, unspecified organism Code(s): A41.9 - Sepsis, unspecified organism Status: Acute Assessment and Plan: Secondary to #1 above. Criteria met on admission. WBC continues to trend down. Hemodynamically stable. Continue broad-spectrum IV abx. Blood cultures NGTD. (3) Chest pain: Code(s): R07.9 - Chest pain, unspecified Status: Acute Assessment and Plan: Resolved. Additional Plan I have discussed the plan of care with Dr. Serna. Subjective Subjective Date/Time Seen: 06/05/21 09:01 Post Op day: 4 Patient reports: no new complaints, feels better, pain is less, tolerating liquids well (full liquids), voiding w/o difficulty and afebrile Interval history: He is feeling better today. Reports bloating has improved. Had some nausea yesterday, no vomiting, but this has resolved and he is not experiencing any nausea this morning. Pain remains controlled with only the PRN Ibuprofen. Has not walked in the halls or gotten up much, which I encouraged again today. No other complaints. Review of Systems Review of Systems: All systems reviewed & are unremarkable except as noted in HPI and below Constitutional: Constitutional: Reports as per HPI, Reports no additional constitutional complaints, Denies chills and Denies fever(s) Cardiovascular: Cardiovascular: Reports no additional cardiovascular complaints, Denies chest pain, Denies leg edema and Denies dyspnea Respiratory: Respiratory: Reports no additional respiratory complaints, Denies cough and Denies dyspnea Gastrointestinal: Gastrointestinal: Reports as per HPI and Reports no additional gastrointestinal complaints Exam Const: General: comfortable, no acute distress, alert and awake Orientation/consciousness: patient oriented x3 Resp: Effort & Inspection: normal respiratory effort Auscultation: clear to auscultation bilaterally Cardio: Rate: regular rate Rhythm: regular rhythm GI: Inspection: non-distended and incision (Midline incision with minimal serosanguineous drainage) GI Palp: Yes Soft to palpation, Yes Tenderness to palpation present (GI) ( appropriate postop incisional tenderness), No Guarding due to palpation present (GI) and No Rebound tenderness present Auscultation: normal bowel sounds Other: Ostomy pink, slightly edematous, with moderate dark brown stool output in the bag Skin: General skin exam: normal color Neuro: General: moves all extremities and no focal motor deficits Extrem: General: no clubbing, cyanosis or edema and no calf tenderness Psych: Mental Status: mental status grossly normal Insight: Good insight present (Psych) Judgement: Good judgement present (Psych) Objective Data Vital Signs Vital Signs: Vital Signs - 24 hr 06/04/21 10:00 06/04/21 14:00 06/04/21 18:00 Temperature 97.8 F 98.6 F 98.0 F Pulse Rate 84 94 112 H Respiratory Rate 16 16 20 Blood Pressure 122/76 135/76 112/74 Pulse Oximetry 96 92 94 06/04/21 22:00 06/05/21 02:00 06/05/21
[2021-06-05 10:00] VITALS: BP 107/66; PULSE 105; RESP 16; TEMP 37.2; O2SAT 95
[2021-06-05 14:20] VITALS: BP 103/60; PULSE 86; RESP 16; TEMP 36.4; O2SAT 94
[2021-06-05 20:00] VITALS: BP 122/73; PULSE 83; RESP 18; TEMP 37; O2SAT 94
[2021-06-06] VITALS (7 sets, daily range): BP systolic 117–130; BP diastolic 62–77; PULSE 80–99; RESP 16–18; TEMP 36.4–37; O2SAT 91–96
[2021-06-06] MEDS: HYDROcodone/acetaminophen (*CRX) 5-325 MG TABLET 1 TAB PO ×2 (01:43→23:37)
[2021-06-06 05:45] LABS: Hematocrit 34.3 % (42.0-52.0); Hemoglobin 10.7 g/dL (14.0-18.0); Mean Corpuscular HGB Conc 31.2 g/dl (32-36); Mean Corpuscular Hemoglobin 29.4 pg (26-34); Mean Corpuscular Volume 94.2 fl (80-100); Mean Platelet Volume 8.8 fl (7.4-10.4); Platelet Count Result 369 k/mm3 (150-375); Red Blood Count 3.64 M/mm3 (4.6-6.20); Red Cell Distribution Width 13.6 % (11.5-14.5); White Blood Count 11.9 K/mm3 (4.5-10.0)
[2021-06-06 05:52] LABS: Anion Gap 7 mmol/L (8-16); Blood Urea Nitrogen 10 mg/dL (9-20); Calcium 7.9 mg/dL (8.4-10.2); Carbon Dioxide 26 mmol/L (22-30); Chloride 99 mmol/L (98-107); Estimated CRCL calculation 105 ml/min; Estimated Glomerular Filt Rate > 60; Glucose 115 mg/dL (75-110); Potassium 3.5 mmol/L (3.4-5.0); Sodium 132 mmol/L (137-145)
[2021-06-06] MEDS: ENOXAPARIN 40 MG/0.4 ML SYRINGE SUB-Q (08:47)
--- NOTE | 2021-06-06 10:49 | PM.PNGS ---
Progress Note: A&P Assessment and Plan (1) Diverticulitis large intestine: Qualifiers: Diverticulitis bleeding: without bleeding Diverticulitis complication: with perforation and abscess Qualified Code(s): K57.20 - Diverticulitis of large intestine with perforation and abscess without bleeding Code(s): K57.32 - Diverticulitis of large intestine without perforation or abscess without bleeding Status: Acute Assessment and Plan: Continue regular diet 1 more day of IV antibiotics, then can transition to oral antibiotics on discharge Appears to be slowly improving. Possible discharge tomorrow if remaining stable. (2) Sepsis: Qualifiers: Sepsis acute organ dysfunction status: unspecified Sepsis type: sepsis due to unspecified organism Qualified Code(s): A41.9 - Sepsis, unspecified organism Code(s): A41.9 - Sepsis, unspecified organism Status: Resolved Subjective Subjective Date/Time Seen: 06/06/21 10:49 Interval history: Ostomy functioning. Patient had episode overnight where he was having severe cramping pain and sweats. No problems since then. No fevers. Tolerating diet. Exam Const: General: comfortable, no acute distress, alert and awake Orientation/consciousness: patient oriented x3 Resp: Effort & Inspection: normal respiratory effort Auscultation: clear to auscultation bilaterally Cardio: Rate: regular rate Rhythm: regular rhythm GI: Inspection: non-distended and incision (Midline incision with minimal blood/brown tinge on gauze, but wound dry) GI Palp: Yes Soft to palpation, Yes Tenderness to palpation present (GI) ( appropriate postop incisional tenderness), No Guarding due to palpation present (GI) and No Rebound tenderness present Auscultation: normal bowel sounds Other: Ostomy pink, slightly edematous, with moderate dark brown stool output in the bag Skin: General skin exam: normal color Neuro: General: moves all extremities and no focal motor deficits Extrem: General: no clubbing, cyanosis or edema and no calf tenderness Psych: Mental Status: mental status grossly normal Insight: Good insight present (Psych) Judgement: Good judgement present (Psych) Objective Data Vital Signs Vital Signs: Vital Signs - 24 hr 06/05/21 14:20 06/05/21 20:00 06/06/21 00:00 Temperature 36.4 C L 37.0 C 36.9 C Pulse Rate 86 83 80 Respiratory Rate 16 18 16 Blood Pressure 103/60 122/73 126/75 Pulse Oximetry 94 94 96 06/06/21 04:00 06/06/21 08:25 06/06/21 10:00 Temperature 36.8 C 36.9 C Pulse Rate 88 92 Respiratory Rate 18 18 Blood Pressure 118/62 129/67 Pulse Oximetry 95 96 91 Intake/Output Intake/Output: Intake & Output 06/03/21 06/04/21 06/05/21 06/06/21 23:59 23:59 23:59 23:59 Intake Total 2990 1350 1800 1100 Output Total 1000 1680 2060 1250 Balance 1989 -870 -260 -150 Meds/Results Medications: Active Medications Generic Name Dose Route Start Last Admin Trade Name Freq PRN Reason Stop Dose Admin Hydrocodone Bitart/Acetaminophen 1 tab 06/04/21 10:48 Hydrocodone/Acetaminophen (*Crx) 10-325 Mg Tablet PO Q4H PRN Pain Rated 7-10 Hydrocodone Bitart/Acetaminophen 1 tab 06/04/21 10:48 06/06/21 01:43 Hydrocodone/Acetaminophen (*Crx) 5-325 Mg Tablet PO 1 tab Q4H PRN Administration Pain Rated 4-6 Enoxaparin Sodium 40 mg 06/02/21 09:00 06/06/21 08:47 Enoxaparin 40 Mg/0.4 Ml Syringe SUB-Q 40 mg DAILY TONY Administration Hydromorphone HCl 1 mg 06/01/21 18:14 Hydromorphone Hcl Inj (*Crx) 1 Mg/Ml Syr IV PUSH Q2H PRN Pain Rated 7-10 Hydromorphone HCl 0.5 mg 06/01/21 18:14 Hydromorphone Hcl Inj (*Crx) 1 Mg/Ml Syr IV PUSH Q2H PRN Pain Rated 4-6 Piperacillin/Tazobactam/Dextrose 3.375 gm in 50 mls @ 100 mls/hr 06/01/21 16:10 06/06/21 05:36 Zosyn 3.375 Gm/D5w 50ml Pm IVPB Infused Q6HR TONY Infusion Ibuprofen 600 mg 06/04/21 10:48 06/05/21 08:58 Ibuprofen 6
[2021-06-07] VITALS: BP 122/64; PULSE 94; RESP 16; TEMP 36.6; O2SAT 93
[2021-06-07 04:00] VITALS: BP 124/62; PULSE 83; RESP 16; TEMP 36.3; O2SAT 94
[2021-06-07 05:49] LABS: Hematocrit 35.2 % (42.0-52.0); Hemoglobin 11.1 g/dL (14.0-18.0); Mean Corpuscular HGB Conc 31.5 g/dl (32-36); Mean Corpuscular Hemoglobin 29.5 pg (26-34); Mean Corpuscular Volume 93.6 fl (80-100); Mean Platelet Volume 8.7 fl (7.4-10.4); Platelet Count Result 395 k/mm3 (150-375); Red Blood Count 3.76 M/mm3 (4.6-6.20); Red Cell Distribution Width 13.7 % (11.5-14.5); White Blood Count 9.9 K/mm3 (4.5-10.0)
[2021-06-07] MEDS: ENOXAPARIN 40 MG/0.4 ML SYRINGE SUB-Q (08:10)
[2021-06-07 10:00] VITALS: BP 109/63; PULSE 89; RESP 18; TEMP 36.6; O2SAT 95
[2021-06-07 10:20] VITALS: BMI 28.6
--- NOTE | 2021-06-07 11:08 | PM.DS ---
DS: Admitting Diagnosis Admitting Diagnosis Admitting Diagnosis: Perforated viscus, sepsis, peritonitis DS: Discharge Diagnosis Discharge Diagnosis (1) Diverticulitis large intestine: Qualifiers: Diverticulitis bleeding: without bleeding Diverticulitis complication: with perforation and abscess Qualified Code(s): K57.20 - Diverticulitis of large intestine with perforation and abscess without bleeding Code(s): K57.32 - Diverticulitis of large intestine without perforation or abscess without bleeding Status: Acute DS: Summary Hospital Course Reason for hospitalization: perforated diverticulitis Hospital Course: this is a 50-year-old man presented to the emergency department on 06/01/2021 with complaints of severe abdominal pain. He had recently been hospitalized for acute diverticulitis with microperforation. He was doing well with medical treatment initially and was discharged home on oral antibiotics. He did not have much appetite but he was slowly improving while at home. In the morning on 06/01/2021 he felt a pop and began having more severe pain. In the emergency department he was noted to have peritoneal signs and a firm abdomen. CT of his abdomen and pelvis was done and this showed evidence perforated diverticulitis with moderate amount of free air. He was taken urgently to surgery for exploratory laparotomy. Sigmoid colectomy with end descending colostomy was performed. He was admitted to the IMU postoperatively and continued on broad-spectrum IV antibiotics. He had an NG tube that was placed at the time of surgery in anticipation for a prolonged postoperative ileus. On postop day 2 his NG tube was removed and he was started on clear liquid diet. Over the next couple days his diet was slowly advanced to a regular diet. His pain was adequately controlled. His activity was gradually advanced as well until he was ambulating in the halls and getting around well. The wound/ostomy nurse was consulted for ostomy teaching. Ostomy changes were performed with the patient's mother to assist. On 06/07, he was tolerating his diet and ostomy changes were going well. He was remaining afebrile. He was discharged on 06/07/2021. Status at Discharge Functional status at discharge: independent ambulation Overall status at discharge: patient is progressing back to baseline Time Spent with Patient Time attestation: Total time spent providing and/or coordinating discharge services: Time spent: Less than 30 minutes Exam GI: Inspection: non-distended and incision ( Midline incision intact with darren) Other: tiny amount of greenish drainage on gauze, but no evidence of drainage from wound. No erythema or wound openings. DS: Data Data Completed and Pending Completed studies during hospitalization: Pending at discharge 06/01/21 15:55 Surgical [PTH] Routine Labs on day of discharge: Labs from last 24 hours 06/07/21 05:28 WBC 9.9 RBC 3.76 L Hgb 11.1 L Hct 35.2 L MCV 93.6 MCH 29.5 MCHC 31.5 L RDW 13.7 Plt Count 395 H MPV 8.7 Preliminary micro results at discharge 06/01/21 08:31 Blood Culture - Preliminary Blood 06/01/21 08:31 Blood Culture - Preliminary Blood Imaging Radiologist's impression: ITS Impressions Chest X-Ray 06/01/21 08:44 IMPRESSION: 1. Free intraperitoneal gas, consistent with perforated viscus. 2. Mild atelectasis at the lung bases. Abdomen X-Ray 06/01/21 08:46 IMPRESSION: 1. Free intraperitoneal gas, consistent with perforated viscus. 2. Dilated small bowel, consistent with adynamic ileus versus bowel obstruction. Abdomen/Pelvis CT 06/01/21 09:20 IMPRESSION: 1. Perforated sigmoid diverticulitis with free gas under the diaphragm, peritonitis, multiple abscesses, and small volume of ascites. 2. Dilated small bowel, consistent with adynamic ileus versus partial small bowel obstruction. 3. Small pleural effusions. 4. Small pericardia
== END 2021-06-07 15:12 | disposition home health service (06) | DRG 710 ==
LOC: ANHED 09:47 → ANHIMU 10:33 → ANH2MED 06-02 22:26
PROVIDERS: Nurse Practitioner Family; Admitting Provider Surgery; Emergency Provider Emergency Medicine; Visit Provider Surgery
PROC: 0W9G0ZZ Drainage of Peritoneal Cavity, Open Approach (ICD-10-PCS; CPT 49000; principal; 2021-06-01 15:00)
DX: A41.9 Sepsis, unspecified organism (principal); K57.20 Diverticulitis of large intestine with perforation and abscess without bleeding; R07.9 Chest pain, unspecified; Z87.891 Personal history of nicotine dependence
CPT/HCPCS: 36415; 51701; 71045; 74019; 74177; 80048; 80053; 81001; 82948; 83605; 85025; 85027; 85610; 85730; 86850; 86900; 86901; 87040; 88307; 93005; 96361; 96374; 96375; 99285; A9270; C1765; J0131; J1100; J1170; J1650; J1741; J2250; J2270; J2405; J2543; J2704; J2710; J3010; J3480; J7030; J7120; Q9967

== ENCOUNTER 2021-06-12 16:20 | Outpatient (NON) | payer MEDICAID, SELFPAY ==
[2021-06-12 16:41] LABS: Hematocrit 32.9 % (42.0-52.0); Hemoglobin 10.2 g/dL (14.0-18.0); Mean Corpuscular Hemoglobin 29.5 pg (26-34); Mean Corpuscular Volume 95.1 fl (80-100); Mean Platelet Volume 9.7 fl (7.4-10.4); Platelet Count Result 267 k/mm3 (150-375); Red Blood Count 3.46 M/mm3 (4.6-6.20); White Blood Count 11.7 K/mm3 (4.5-10.0)
== END 2021-06-12 16:21 | disposition home or self-care (01) ==
LOC: HOME HLTH 16:24
PROVIDERS: Visit Provider Surgery
DX: Z43.3 Encounter for attention to colostomy (principal); D64.9 Anemia, unspecified
CPT/HCPCS: 85027

== ENCOUNTER → 2021-07-15 08:58 | Outpatient (CLI) | payer BC, SELFPAY ==
[2021-07-16 01:23] LABS: SARS-CoV-2 RNA PCR Negative
== END ==
PROVIDERS: Visit Provider Surgery
DX: Z01.812 Encounter for preprocedural laboratory examination (principal); Z20.822 Contact with and (suspected) exposure to COVID-19
CPT/HCPCS: C9803; U0003; U0005

== ENCOUNTER 2021-07-18 02:19 | Day surgery (SDC) | payer BC, SELFPAY ==
[2021-07-15 10:13] VITALS: BMI 24.3
[2021-07-18 07:40] VITALS: BP 111/75; PULSE 78; RESP 18; TEMP 36.2; O2SAT 97
[2021-07-18] MEDS: LACTATED RINGERS 1,000 ML 150 ML IV CONT (08:02)
--- NOTE | 2021-07-18 08:37 | WPDANESEPPF ---
Anes - Initial Pre Proc Eval Procedure: Operation Date: 07/18/21 08:30 Proposed Procedures p Colonoscopy - Robert Serna DO Date/Time: 07/18/21 08:37 Surgeon: Robert Serna DO Pre Op Diagnosis: Diverticulitis Patient Data Age: 50 Gender: M Height: 1.88 m Weight: 85.7 kg Last Vital Signs Temp 97.1 F L 07/18/21 07:40 Pulse 78 07/18/21 07:40 Resp 18 07/18/21 07:40 BP 111/75 07/18/21 07:40 Pulse Ox 97 07/18/21 07:40 Allergies Allergy/AdvReac Type Severity Reaction Status Date / Time No Known Allergies Allergy Verified 07/18/21 07:39 Home Medications Medication Instructions Recorded Confirmed Type No Home Medications 07/15/21 07/15/21 History Patient hx anesthesia problems: none Family hx anesthesia problems: none PMFSH Past Medical History Medical History (Updated 07/18/21 @ 08:37 by Wei Cloud MD) Diverticula of colon Social History Social History Smoking packs per day: 1 Smoking cigarettes per day: 20.0 Years smoked: 15 Smoking pack-years: 15.00 Smoking status: Former smoker Tobacco type: cigarettes and e-cigarettes/vaping Additional smoking assessment comments: QUIT VAPING 2020 Alcohol intake: never Substance use: never Substance use type: does not use Living arrangements: with family Spiritual care concerns: No Anes - Eval Final PreProcedure Day of Procedure 07/18/21 08:37 Patient weight: normal Heart: regular rate and rhythm Lungs: clear to auscultation Airway: Mallampati scale class II Neurological: alert and oriented Last oral intake: >/= 8 hours ASA classification: II Emergent: no Anesthetic plan: proceed Anesthesia type and monitoring: general GIVS and standard monitoring Informed Consent: The patient's anesthetic plan and its attendant risks and benefits were discussed with the patient/family/POA. Questions were solicited and answers provided to the satisfaction of the patient/family/POA.
--- NOTE | 2021-07-18 08:46 | WPDHPUPDATE1 ---
History and Physical Update Update Date/Time: 07/18/21 08:46 History and Physical has been reviewed, including an updated exam of the patient. There are NO changes in the patient's condition. Risks, benefits, and alternatives have been discussed and questions answered. Patient agrees to proceed with procedure.
[2021-07-18 09:17] VITALS: BP 108/76; PULSE 71; RESP 19; O2SAT 96
[2021-07-18 09:27] VITALS: BP 114/75; PULSE 64; RESP 12; O2SAT 99
[2021-07-18 09:37] VITALS: BP 129/85; PULSE 66; RESP 20; O2SAT 100
== END 2021-07-18 09:50 | disposition home or self-care (01) ==
PROVIDERS: Visit Provider Surgery
PROC: 0DJD8ZZ Inspection of Lower Intestinal Tract, Via Natural or Artificial Opening Endoscopic (ICD-10-PCS; CPT 45378; principal; 2021-07-18 08:30)
DX: K57.20 Diverticulitis of large intestine with perforation and abscess without bleeding (principal); Z93.3 Colostomy status
CPT/HCPCS: 44388; J2704; J7120

== ENCOUNTER 2021-09-16 07:58 | Outpatient (CLI) | payer BC, SELFPAY | END 2021-09-16 07:59 | disposition home or self-care (01) | LOC: ANHSURGERY 08:02 | PROVIDERS: Visit Provider Surgery | DX: Z01.818 Encounter for other preprocedural examination (principal); Z93.3 Colostomy status | CPT/HCPCS: 36415; 86850; 86900; 86901 ==

== ENCOUNTER → 2021-09-21 00:42 | Outpatient (CLI) | payer BC, SELFPAY ==
[2021-09-21 18:23] LABS: SARS-CoV-2 RNA PCR Negative
== END ==
PROVIDERS: Visit Provider Surgery
DX: Z01.812 Encounter for preprocedural laboratory examination (principal); Z20.822 Contact with and (suspected) exposure to COVID-19
CPT/HCPCS: C9803; U0003; U0005

== ENCOUNTER 2021-09-25 07:53 | Inpatient (IN) | payer BC, SELFPAY ==
[2021-09-16 08:10] VITALS: BMI 27.2
[2021-09-16 08:45] VITALS: BP 105/73; PULSE 73; RESP 16; TEMP 36.7; O2SAT 97
[2021-09-25] VITALS (16 sets, daily range): BP systolic 111–150; BP diastolic 74–98; PULSE 69–96; RESP 9–18; TEMP 36.1–37.1; O2SAT 93–100
[2021-09-25] MEDS: LACTATED RINGERS 1,000 ML 30 ML IV CONT ×2 (08:15→12:35)
[2021-09-25] MEDS: ACETAMINOPHEN 500 MG TABLET 1000 MG PO ×3 (08:17→23:42)
[2021-09-25] MEDS: KETOROLAC 15 MG/ML VIAL (*BKC) IV PUSH (08:17)
--- NOTE | 2021-09-25 08:59 | P.PNAN_ITS ---
Anes - Initial Pre Proc Eval Procedure: Operation Date: 09/25/21 09:30 Proposed Procedures p Colostomy Takedown - Robert Serna DO Date/Time: 09/25/21 08:59 Surgeon: Robert Serna DO Pre Op Diagnosis: Colostomy Status Patient Data Age: 50 Gender: M Height: 1.89 m Weight: 96.5 kg Last Vital Signs Temp 36.6 C 09/25/21 07:44 Pulse 96 09/25/21 07:44 Resp 16 09/25/21 07:44 BP 111/77 09/25/21 07:44 Pulse Ox 95 09/25/21 07:44 Allergies Allergy/AdvReac Type Severity Reaction Status Date / Time No Known Allergies Allergy Verified 09/25/21 07:45 Home Medications Medication Instructions Recorded Confirmed Type No Home Medications 09/25/21 09/25/21 History Patient hx anesthesia problems: none Family hx anesthesia problems: none Results Review: All pre-operative results and documents have been reviewed as part of the pre-operative evaluation. [facility] Past Medical History Medical History Abnormal finding on CT scan Acute kidney injury (~05/2021) Cystitis (~05/26/21) Diverticula of colon Diverticulitis large intestine Ileus (~05/26/21) Perforation of sigmoid colon due to diverticulitis (~05/26/21) Sepsis Surgical History Surgical History History of laparotomy Exploratory laparotomy 2. Sigmoid colectomy with end descending colostomy 3. Drainage of multiple intra-abdominal abscesses Social History Social History Smoking packs per day: 1 Smoking cigarettes per day: 20.0 Years smoked: 15 Smoking pack-years: 15.00 Smoking status: Former smoker Tobacco type: cigarettes and e-cigarettes/vaping Smoking end date: 11/23/12 Additional smoking assessment comments: QUIT VAPING MAY 2021 Alcohol intake: never Substance use: never Substance use type: does not use Living arrangements: alone Gender identity (if verbalized by the patient): Male Spiritual care concerns: No Anes - Eval Final PreProcedure Day of Procedure 09/25/21 08:59 Patient weight: overweight Heart: regular rate and rhythm Lungs: clear to auscultation Airway: Mallampati scale class II Neurological: alert and oriented Last oral intake: >/= 8 hours ASA classification: II Emergent: no Anesthetic plan: proceed Anesthesia type and monitoring: general ETT and standard monitoring Results Review: All pre-operative results and documents have been reviewed as part of the pre-operative evaluation. Informed Consent: The patient's anesthetic plan and its attendant risks and benefits were discussed with the patient/family/POA. Questions were solicited and answers provided to the satisfaction of the patient/family/POA.
--- NOTE | 2021-09-25 09:12 | PM.IMHP ---
H&P: HPI History of Present Illness Date/Time: 09/25/21 09:12 Chief Complaint: Diverticulitis with perforation, colostomy status Narrative: This is a 50-year-old man who is presenting for take down of colostomy. He presented in May with perforated diverticulitis requiring emergency surgery. A Olivia's procedure was done and the patient was given an end descending colostomy. He has recovered from the infection and has been doing well postoperatively. A colonoscopy showed no other pathology to explain the perforation other than diverticulosis. Discussions were made with the patient and decision has now been made to proceed with takedown of colostomy. Review of Systems Review of Systems: All systems reviewed & are unremarkable except as noted in HPI and below Constitutional: Constitutional: Denies chills, Denies fever(s), Denies headache(s) and Denies weight loss Eyes: Eyes: Denies change in vision ENT: Denies dizziness, Denies headache(s), Denies neck mass and Denies throat swelling Cardiovascular: Cardiovascular: Denies chest pain, Denies lightheadedness and Denies dyspnea Respiratory: Respiratory: Denies cough, Denies dyspnea and Denies wheezing Gastrointestinal: Gastrointestinal: Denies abdominal pain, Denies change in bowel habits, Denies nausea and Denies vomiting Genitourinary: Genitourinary: Denies hematuria and Denies dysuria Musculoskeletal: Musculoskeletal: Reports as per HPI Integumentary/Breasts: Skin/Breast: Reports as per HPI Neurologic: Denies dizziness and Denies headache(s) Allergic/Immunologic: Allergic/Immunologic: Denies throat swelling and Denies wheezing [facility] Past Medical History Medical History Abnormal finding on CT scan Acute kidney injury (~05/2021) Cystitis (~05/26/21) Diverticula of colon Diverticulitis large intestine Ileus (~05/26/21) Perforation of sigmoid colon due to diverticulitis (~05/26/21) Sepsis Surgical History Surgical History History of laparotomy Exploratory laparotomy 2. Sigmoid colectomy with end descending colostomy 3. Drainage of multiple intra-abdominal abscesses Social History Social History Smoking packs per day: 1 Smoking cigarettes per day: 20.0 Years smoked: 15 Smoking pack-years: 15.00 Smoking status: Former smoker Tobacco type: cigarettes and e-cigarettes/vaping Smoking end date: 11/23/12 Additional smoking assessment comments: QUIT VAPING MAY 2021 Alcohol intake: never Substance use: never Substance use type: does not use Living arrangements: alone Gender identity (if verbalized by the patient): Male Spiritual care concerns: No Meds Home Medications and Allergies Home Medications Medication Instructions Recorded Confirmed Type No Home Medications 09/25/21 09/25/21 History Allergies Allergy/AdvReac Type Severity Reaction Status Date / Time No Known Allergies Allergy Verified 09/25/21 07:45 Vital Signs Vital Signs - 24 hr 09/25/21 07:44 Temperature 36.6 C Pulse Rate 96 Respiratory Rate 16 Blood Pressure 111/77 Pulse Oximetry 95 Exam Const: General: no acute distress and alert Orientation/consciousness: patient oriented x3 HENMT: Head: normocephalic and atraumatic Ears: hearing grossly normal bilaterally General nose exam: Normal nares present Mouth: Yes Normal oral and palatal mucosa present Eyes: Periorbital: periorbital findings normal Sclera: sclerae normal EOM: EOMs intact bilaterally Neck: Neck: normal visual inspection, no lymphadenopathy and trachea midline Chest: Chest palpation & inspection: normal inspection of the chest Resp: Effort & Inspection: normal respiratory effort Auscultation: clear to auscultation bilaterally Cardio: Jugular venous distension: no JVD Rate: regular rate Rhyth
--- NOTE | 2021-09-25 09:16 | WPDHPUPDATE1 ---
History and Physical Update Update Date/Time: 09/25/21 09:16 History and Physical has been reviewed, including an updated exam of the patient. There are NO changes in the patient's condition. Risks, benefits, and alternatives have been discussed and questions answered. Patient agrees to proceed with procedure.
[2021-09-25] MEDS: ALVIMOPAN 12 MG CAPSULE PO (09:20)
[2021-09-25] MEDS: ceFAZolin 2 GM/D5W 50 ML 2 GM/50 ML BAG IVPB (10:00)
[2021-09-25] MEDS: metroNIDAZOLE 500 MG/ISO 100ML 500 MG/100 ML BAG 100 MG IVPB (10:13)
--- NOTE | 2021-09-25 12:30 | SUR.OPER ---
EBL 50ML
--- NOTE | 2021-09-25 12:30 | W.PM.PROC2 ---
Procedure Note - Detailed Date of Procedure 09/25/21 Pre-op Diagnosis Colostomy Status, diverticulitis with perforation and abscess Post-op Diagnosis same Procedure Performed 1. Colostomy takedown 2. Partial colectomy with colorectal anastomosis Surgeon Robert Serna, DO Anesthesia general Indications This is a 50-year-old man who presented with perforated diverticulitis with multiple intra-abdominal abscesses in May of 2021. He was found to have distant free air and signs of sepsis and was therefore taken emergently for exploratory laparotomy with sigmoid colectomy and end descending colostomy. He has now healed up well enough from the surgery and presents for colostomy takedown. Findings Takedown of colostomy was performed. There were some intra-abdominal adhesions that came down with careful blunt dissection. I was able to identify the rectal stump from his previous surgery. I did have to clear more of the upper rectum to allow for an anastomosis on healthy appearing rectum. The upper portion of the rectum was resected and sent for pathology. I then also took down the descending colostomy from around the skin and reduced it back into the abdominal cavity. The resected a portion of the descending colon so that this could be anastomosed to healthy appearing colon. The descending colon came down into the pelvis without any tension. A 28 mm EEA stapler was chosen to perform the anastomosis. A leak test showed no evidence of air bubbles leaking around the anastomosis. The anastomosis was inspected and appeared healthy and viable. Description of Procedure procedure as well as risks, benefits, and alternatives were discussed with the patient. Written consent was obtained and placed in chart prior to procedure. Patient was brought back to surgical suite. He was placed supine on operating table. Time-out was done to confirm patient and procedure. He was then intubated by the Anesthesia Department. He was then repositioned into modified lithotomy position. Rectal irrigation was performed with Betadine and his perirectal area was prepped and draped in sterile fashion using Betadine prep. His abdomen was prepped and draped in sterile fashion using chlorhexidine prep and Betadine spray around the ostomy. The ostomy was sutured closed using an 0 silk running suture. A low vertical midline incision was made from the umbilicus to the suprapubic region using a 10 blade scalpel. Electrocautery was used for hemostasis and for dissection down through the subcutaneous tissue. The linea alba was then incised using electrocautery. The peritoneal cavity was then entered and the peritoneum was extended open throughout the length of the fascial incision and skin incision using electrocautery. A large Daryn wound protector was then inserted. The abdomen was then very carefully inspected. There were a few pelvic adhesions that were carefully taken down using blunt dissection. This freed up the small bowel and I was able to pack the small bowel out of the pelvis and into the upper abdomen. I then inspected the pelvis and identified the suture in the rectal stump from the previous surgery. I carefully freed up the rectal stump and identified the entire previous staple line. This appeared to be right near the rectosigmoid junction and the bowel appeared somewhat edematous in this location. I then chose to dissect slightly distal onto the upper rectum and resect the previous rectal stump. A window was created in the mesorectum using electrocautery and blunt dissection. A green contour stapler was then advanced across the upper rectum about 2 in distal to the rectal stump. The stapler was then clamped and fired. The remaining mesorectal attachments to the resected portion of the rectal stump was then taken down using LigaSure bipolar cautery. The new staple line was then inspected and this appeared to be healthy appearing portion of the rectum. I then removed
[2021-09-25] MEDS: fentaNYL CITRATE INJ (*CRX) 100 MCG/2 ML VIAL 25 MCG IV PUSH ×4 (12:48→13:20)
[2021-09-25] MEDS: ONDANSETRON INJ 4 MG/2 ML VIAL IV PUSH (13:37)
[2021-09-25] MEDS: LACTATED RINGERS 1,000 ML 100 ML IV CONT (15:03)
--- NOTE | 2021-09-25 15:12 | ADMGEN ---
This patient, Giovani Diaz, was admitted to Medical Room 340-01. Patient/family oriented to hospital policies and general routines including ID bracelet, bed and alarms, visiting hours, pain management, procedures, bathroom and other care routines, personal items, smoking policy, room service/diet, and visiting hours. Information on how to activate the Rapid Response Team has been discussed. Patient/Family are encouraged to report perceived risks to care and to ask questions if they do not understand what they are told or what they should do.
[2021-09-26] MEDS: LACTATED RINGERS 1,000 ML 100 ML IV CONT ×2 (01:11→11:59)
[2021-09-26] MEDS: ACETAMINOPHEN 500 MG TABLET 1000 MG PO ×3 (05:02→17:51)
[2021-09-26 05:03] VITALS: BP 134/65; PULSE 78; RESP 16; TEMP 36.6; O2SAT 97
[2021-09-26 06:15] LABS: Basophils Percent Auto 0.2 % (0.2-1.2); Hematocrit 41.5 % (42.0-52.0); Hemoglobin 13.5 g/dL (14.0-18.0); Immature Granulocyte Absolute 0.03 K/mm3 (0.00-0.031); Immature Granulocyte Percent A 0.3 % (0-0.5); Lymphocytes Absolute Auto 0.99 K/mm3 (0.9-3.2); Lymphocytes Percent Auto 8.7 % (18.3-44.2); Mean Corpuscular HGB Conc 32.5 g/dl (32-36); Mean Corpuscular Hemoglobin 30.1 pg (26-34); Mean Corpuscular Volume 92.6 fl (80-100); Mean Platelet Volume 8.9 fl (7.4-10.4); Monocytes Absolute Auto 0.7 K/mm3 (0.1-0.6); Monocytes Percent Auto 6.2 % (2.6-8.5); Neutrophils Absolute Auto 9.6 K/mm3 (1.3-6.7); Neutrophils Percent Auto 84.6 % (45.5-73.1); Platelet Count Result 154 k/mm3 (150-375); Red Blood Count 4.48 M/mm3 (4.6-6.20); Red Cell Distribution Width 13.2 % (11.5-14.5); White Blood Count 11.4 K/mm3 (4.5-10.0)
[2021-09-26 06:38] LABS: Anion Gap 9 mmol/L (8-16); Blood Urea Nitrogen 11 mg/dL (9-20); Calcium 9.1 mg/dL (8.4-10.2); Carbon Dioxide 23 mmol/L (22-30); Chloride 105 mmol/L (98-107); Estimated CRCL calculation 94 ml/min; Estimated Glomerular Filt Rate > 60; Glucose 134 mg/dL (65-110); Potassium 4.2 mmol/L (3.4-5.0); Sodium 137 mmol/L (137-145)
[2021-09-26] MEDS: ENOXAPARIN 40 MG/0.4 ML SYRINGE SUB-Q (08:35)
[2021-09-26 08:50] VITALS: BP 126/77; PULSE 76; RESP 18; TEMP 36.3; O2SAT 96
--- NOTE | 2021-09-26 12:48 | PM.PNGS ---
Progress Note: A&P Assessment and Plan (1) Diverticulitis of large intestine with perforation and abscess without bleeding: Code(s): K57.20 - Diverticulitis of large intestine with perforation and abscess without bleeding Status: Acute Assessment and Plan: Advance to full liquids. Increase activity. Local wound care to incisions. Subjective Subjective Date/Time Seen: 09/26/21 12:48 Interval history: Bowels moving. Tolerating clear liquids. Up ambulating. Minimal pain and only taking oral Tylenol so far. Exam GI: Inspection: non-distended and incision (Clean/dry/intact, minimal bloody drainage) GI Palp: Yes Soft to palpation and Yes Tenderness to palpation present (GI) (minimal incisional) Auscultation: normal bowel sounds Objective Data Vital Signs Vital Signs: Vital Signs - 24 hr 09/25/21 12:50 09/25/21 13:05 09/25/21 13:20 Temperature Pulse Rate 69 74 76 Respiratory Rate 12 11 L 15 Blood Pressure 146/96 H 146/96 H 150/90 H Pulse Oximetry 100 100 99 09/25/21 13:35 09/25/21 13:50 09/25/21 14:05 Temperature Pulse Rate 72 77 79 Respiratory Rate 10 L 12 9 L Blood Pressure 140/91 H 135/98 H 139/90 Pulse Oximetry 95 93 95 09/25/21 14:20 09/25/21 14:50 09/25/21 15:05 Temperature 36.8 C 36.7 C Pulse Rate 87 90 86 Respiratory Rate 16 16 16 Blood Pressure 134/89 143/79 H 129/77 Pulse Oximetry 95 95 93 09/25/21 15:35 09/25/21 16:35 09/25/21 19:14 Temperature 36.7 C 36.7 C 37.1 C Pulse Rate 94 92 95 Respiratory Rate 18 16 18 Blood Pressure 131/76 134/83 137/74 Pulse Oximetry 96 95 97 09/25/21 20:03 09/25/21 23:40 09/26/21 05:03 Temperature 36.1 C L 36.6 C Pulse Rate 89 78 Respiratory Rate 17 16 Blood Pressure 123/79 134/65 Pulse Oximetry 95 95 97 09/26/21 08:50 Temperature 36.3 C L Pulse Rate 76 Respiratory Rate 18 Blood Pressure 126/77 Pulse Oximetry 96 Intake/Output Intake/Output: Intake & Output 09/23/21 09/24/21 09/25/21 09/26/21 23:59 23:59 23:59 23:59 Intake Total 1200 2550 Output Total 300 800 Balance 900 1750 Meds/Results Medications: Active Medications Generic Name Dose Route Start Last Admin Trade Name Freq PRN Reason Stop Dose Admin Acetaminophen 1,000 mg 09/25/21 18:00 09/26/21 11:59 Acetaminophen 500 Mg Tablet PO 1,000 mg Q6H TONY Administration Alvimopan 12 mg 09/26/21 21:00 Alvimopan 12 Mg Capsule PO 10/03/21 09:01 Q12HR TONY Enoxaparin Sodium 40 mg 09/26/21 09:00 09/26/21 08:35 Enoxaparin 40 Mg/0.4 Ml Syringe SUB-Q 40 mg DAILY TONY Administration Hydromorphone HCl 0.5 mg 09/25/21 14:29 Hydromorphone Hcl Inj (*Crx) 1 Mg/Ml Syr IV PUSH Q2H PRN Pain Rated 4-6 Morphine Sulfate 4 mg 09/25/21 14:29 Morphine Sulfate (*Crx) 4 Mg/Ml Inj IV PUSH Q2H PRN Pain Rated 7-10 Ondansetron HCl 4 mg 09/25/21 14:29 Ondansetron Inj 4 Mg/2 Ml Vial IV PUSH Q4H PRN Nausea And Vomiting Oxycodone HCl 5 mg 09/26/21 12:45 Oxycodone Hcl (*Crx) 5 Mg Tab Ir PO Q4H PRN Pain Rated 7-10 Labs Labs: Laboratory Results - last 24 hr 09/26/21 09/26/21 05:17 05:17 WBC 11.4 H RBC 4.48 L Hgb 13.5 L D Hct 41.5 L MCV 92.6 MCH 30.1 MCHC 32.5 RDW 13.2 Plt Count 154 MPV 8.9 Immature Gran % (Auto) 0.3 Neut % (Auto) 84.6 H Lymph % (Auto) 8.7 L [place] % (Auto) 6.2 Eos % (Auto) 0.0 Baso % (Auto) 0.2 Lymph # (Auto) 0.99 [place] # (Auto) 0.7 H Eos # (Auto) 0.0 Baso # (Auto) 0.0 Abs Immat Gran (auto) 0.03 Absolute Neuts (auto) 9.6 H Absolute Nucleated RBC 0.0 Nucleated RBC % 0.0 Sodium 137 Potassium 4.2 Chloride 105 Carbon Dioxide 23 Anion Gap 9 BUN 11 Creatinine 1.00 Estim Creat Clear Calc 94 Estimated GFR > 60 Glucose 134 H Calcium 9.1
--- NOTE | 2021-09-26 13:12 | P.PNAN_ITS ---
Anes - Prog Note Post-Op Date/Time: 09/26/21 13:12 Cardiovascular status: normal Respiratory status: normal Airway patency: baseline Mental status: baseline Post-Op hydration status: normal Vital Signs: Last Vital Signs Temp 36.3 C L 09/26/21 08:50 Pulse 76 09/26/21 08:50 Resp 18 09/26/21 08:50 BP 126/77 09/26/21 08:50 Pulse Ox 96 09/26/21 08:50 Pain Score (VAS): 12/02 I/O: Intake & Output 09/25/21 09/26/21 09/26/21 23:59 07:59 15:59 Intake Total 50 1550 1000 Output Total 300 800 Balance -599 819 0700 Laboratory Tests 09/26/21 05:17 09/26/21 05:17 09/26/21 09/26/21 05:17 05:17 WBC 11.4 H RBC 4.48 L Hgb 13.5 L D Hct 41.5 L MCV 92.6 MCH 30.1 MCHC 32.5 RDW 13.2 Plt Count 154 MPV 8.9 Immature Gran % (Auto) 0.3 Neut % (Auto) 84.6 H Lymph % (Auto) 8.7 L [place] % (Auto) 6.2 Eos % (Auto) 0.0 Baso % (Auto) 0.2 Lymph # (Auto) 0.99 [place] # (Auto) 0.7 H Eos # (Auto) 0.0 Baso # (Auto) 0.0 Abs Immat Gran (auto) 0.03 Absolute Neuts (auto) 9.6 H Absolute Nucleated RBC 0.0 Nucleated RBC % 0.0 Sodium 137 Potassium 4.2 Chloride 105 Carbon Dioxide 23 Anion Gap 9 BUN 11 Creatinine 1.00 Estim Creat Clear Calc 94 Estimated GFR > 60 Glucose 134 H Calcium 9.1 Post-procedural complaints: none Patient Feedback: Patient satisfied with anesthetic care.
[2021-09-26 16:41] VITALS: BP 140/85; PULSE 95; RESP 18; TEMP 36.4; O2SAT 96
[2021-09-26 21:08] VITALS: BP 146/81; PULSE 71; RESP 18; TEMP 36.6; O2SAT 97
[2021-09-26] MEDS: ALVIMOPAN 12 MG CAPSULE PO (21:24)
[2021-09-27] MEDS: ACETAMINOPHEN 500 MG TABLET 1000 MG PO ×3 (00:20→11:58)
[2021-09-27 05:53] VITALS: BP 112/80; PULSE 83; RESP 16; TEMP 36.8; O2SAT 94
[2021-09-27 05:55] LABS: Hematocrit 39.6 % (42.0-52.0); Hemoglobin 12.7 g/dL (14.0-18.0); Mean Corpuscular HGB Conc 32.1 g/dl (32-36); Mean Corpuscular Hemoglobin 29.3 pg (26-34); Mean Corpuscular Volume 91.5 fl (80-100); Mean Platelet Volume 8.7 fl (7.4-10.4); Platelet Count Result 142 k/mm3 (150-375); Red Blood Count 4.33 M/mm3 (4.6-6.20); Red Cell Distribution Width 13.2 % (11.5-14.5); White Blood Count 6.9 K/mm3 (4.5-10.0)
[2021-09-27 06:09] LABS: Anion Gap 5 mmol/L (8-16); Blood Urea Nitrogen 10 mg/dL (9-20); Carbon Dioxide 29 mmol/L (22-30); Chloride 105 mmol/L (98-107); Estimated CRCL calculation 86 ml/min; Estimated Glomerular Filt Rate > 60; Glucose 106 mg/dL (65-110); Potassium 3.6 mmol/L (3.4-5.0); Sodium 139 mmol/L (137-145)
[2021-09-27] MEDS: ENOXAPARIN 40 MG/0.4 ML SYRINGE SUB-Q (08:03)
[2021-09-27] MEDS: ALVIMOPAN 12 MG CAPSULE PO (08:03)
--- NOTE | 2021-09-27 14:14 | PM.DS ---
DS: Admitting Diagnosis Discharge Date 09/27/2021 Admitting Diagnosis colostomy status, diverticulitis with perforation and abscess DS: Discharge Diagnosis Discharge Diagnosis (1) Colostomy status: Code(s): Z93.3 - Colostomy status Status: Acute (2) Diverticulitis of large intestine with perforation and abscess without bleeding: Code(s): K57.20 - Diverticulitis of large intestine with perforation and abscess without bleeding Status: Acute DS: Summary Hospital Course Reason for hospitalization: postoperative recovery for colostomy takedown Hospital Course: this is a 50-year-old man who presented for colostomy takedown on 09/25/2021. He has a prior history of perforated diverticulitis with multiple intra-abdominal abscesses. He required emergent exploration with sigmoid colectomy and end descending colostomy back in May of 2021. He was admitted to the hospital on 09/25/2021 after undergoing colostomy takedown. He was started on a clear liquid diet. He was also given Entereg preop. This was continued postoperatively as well. On postop day 1 his pain was well controlled with just oral Tylenol. He was having some bowel function with minimal blood in his stool. His diet was then advanced to full liquid diet. On postoperative day 2 he was advanced to a soft regular diet. He was tolerating this and was up ambulating in the halls without much difficulty. His bowels were moving and the blood in his stool had resolved. He was remaining hemodynamically stable. He was discharged on 09/27/2021. Status at Discharge Functional status at discharge: independent ambulation Overall status at discharge: patient is progressing back to baseline Time Spent with Patient Time attestation: Total time spent providing and/or coordinating discharge services: Time spent: Less than 30 minutes Exam Const: General: cooperative and no acute distress Nutritional Appearance: average body habitus Orientation/consciousness: patient oriented x3 Resp: Effort & Inspection: normal respiratory effort Auscultation: clear to auscultation bilaterally Cardio: Rate: regular rate Rhythm: regular rhythm Heart sounds: S1 normal heart sound present and S2 normal heart sound present GI: Inspection: incision ( Intact with darren, minimal bloody drainage at old colostomy site) GI Palp: Yes Soft to palpation, No Tenderness to palpation present (GI) and No Guarding due to palpation present (GI) Auscultation: normal bowel sounds DS: Data Data Completed and Pending Completed studies during hospitalization: Pending at discharge 09/25/21 10:55 Surgical [PTH] Routine Surgical [PTH] Routine Labs on day of discharge: Labs from last 24 hours 09/27/21 09/27/21 05:15 05:15 WBC 6.9 RBC 4.33 L Hgb 12.7 L Hct 39.6 L MCV 91.5 MCH 29.3 MCHC 32.1 RDW 13.2 Plt Count 142 L MPV 8.7 Sodium 139 Potassium 3.6 Chloride 105 Carbon Dioxide 29 Anion Gap 5 L BUN 10 Creatinine 1.10 Estim Creat Clear Calc 86 Estimated GFR > 60 Glucose 106 Calcium 9.0 Discharge Plan Discharge Attending physician on discharge: Robert Serna Discharging Clinician: Robert Serna Patient Disposition: Home, Self-Care Activity: other - see discharge instructions Diet: other - see discharge instructions Wound Care Instructions: other - see discharge instructions Discharge Instructions: POSTOPERATIVE INSTRUCTIONS may shower, no bathing or soaking underwater for 2 weeks no lifting greater than 10 lb take Tylenol or ibuprofen as needed for pain may apply ice packs to incisions as needed for soreness, 30 minutes on at a time ambulate at least 4-5 times daily call office for increasing swelling, redness, or drainage at incisions may drive in 2 weeks continue a soft regular diet for the next week, avoid raw vegetables or [id number] foods Follow-up/Referrals: Rachel
== END 2021-09-27 15:24 | disposition home or self-care (01) | DRG 231 ==
LOC: ANH3MED 09-26 02:23
PROVIDERS: Admitting Provider Surgery; Visit Provider Surgery
PROC: 0DBP0ZZ Excision of Rectum, Open Approach (ICD-10-PCS; CPT 44620; principal; 2021-09-25 09:30)
DX: Z43.3 Encounter for attention to colostomy (principal); K57.30 Diverticulosis of large intestine without perforation or abscess without bleeding; Z87.891 Personal history of nicotine dependence
CPT/HCPCS: 36415; 80048; 85025; 85027; 88305; 88307; A9270; C1729; J0690; J1100; J1170; J1650; J1885; J2250; J2405; J2704; J2710; J3010; J7030; J7120